=== PATIENT | male | born 1965 | race Caucasian/White ===

== ENCOUNTER 2024-05-26 10:25 | Emergency (ER) | payer BC, SELFPAY ==
[2024-05-26 10:36] VITALS: BP 141/86
--- NOTE | 2024-05-26 11:19 | ED.GENMED ---
History of Present Illness
General
Chief Complaint: Visual Problem
Source: patient
Exam Limitations: none
Time Seen by Provider: 05/26/24 10:42
History of Present Illness
History of Present Illness:
Patient with high flashing left eye 2 weeks ago. Seen by his retina specialist and primary nurse clinical. No serious issue found. Has had bilateral multiple retinal detachments. Has had scleral buckling done. No eye pain no other neurologic
symptoms. Today noticed some decreased left lateral vision with some flashing. Tried to call his specialist to no avail
Past History
Past History
ED Past Medical History: CAD, GERD (eosinphelia), HTN, Hypercholesterolemia and SC
ED Past Surgical History: Cardiac (cath w/ stent), Orthopedic and Other (Eye... Scleral buckling)
Social History
Tobacco: Non-smoker
Alcohol: Occasional
Drug: None
Personal:
Living: with family
Review of Systems
Review of Systems
All Other Systems: Not applicable
Neurological: Reports no symptoms; Denies dizzy, headache, weakness or numbness
Phy Exam
Physical Exam
Physical Exam:
GENERAL: Alert and oriented in no apparent distress
EYE: Right pupil mildly irregular. Left pupil smaller than right. This apparently is known. This sharp. Eye confrontation with some decreased left lateral vision left eye only
NECK: Supple
CARDIAC: Regular rate and rhythm without any obvious murmurs.
LUNGS: Clear breath sounds,normal
NEUROLOGICAL: Alert and oriented , gait normal. Speech normal. Cranial nerves II through XII intact.
SKIN: Warm and dry
PSYCH: Normal and appropriate interaction.
Course
Vital Signs
Initial and Last Documented VS:
Initial Vital Signs
Temp Pulse Resp BP Pulse Ox
98.1 F 69 18 141/86 99
05/26/24 10:36 05/26/24 10:36 05/26/24 10:36 05/26/24 10:36 05/26/24 10:36
Last Documented Vital Signs
Temp Pulse Resp BP Pulse Ox
98.1 F 69 18 141/86 99
05/26/24 10:36 05/26/24 10:36 05/26/24 10:36 05/26/24 10:36 05/26/24 10:36
MDM/Problems Addressed
Differential Diagnosis Includes:
Patient's history and symptom complex most consistent with a left eye issue not a central neurologic issue. This is not a hemianopsia as no other neurologic symptoms. Is a history of multiple detached retina's and this would be consistent. I
tried to call our local nurse clinical who he sees and also tried to contact his specialist without success. Feel he needs to go to [facility]. [facility] was contacted and is happy to have him come down evaluate. He is clinically stable to drive.
*Critical Care Note
Total Time (30-74mins, 75-104mins- exclusive of procedures): Not Applicable
Update Note
Update Note:
1120... No ability locally to be seen. Discussed with patient's primary nurse clinical. No availability or answer from his retinal specialist. Discussed with . They are comfortable having him come down by private vehicle to evaluate.
Clinically I am convinced this is a left eye issue and not a central neurologic issue
ED Attending Note
-
Portions of this chart may have been created with voice recognition software.� Occasional wrong word or��sound alike� substitutions may have occurred due to the inherent limitations of voice recognition software.
Discharge Plan
Departure
Patient Disposition: Home (Routine Discharge)
Date of Disposition: 05/26/24
Time of Disposition: 11:19
Patient with high blood pressure during this ER visit?: Yes
Discharge Problem:
Visual changes, History of retinal detachment
Instructions: BLOOD PRESSURE
Prescriptions:
No Action
No Current Medications
0
Activity Restrictions/Additional Instructions:
Go directly to [facility] emergency department to be seen by their nurse clinical
Interventions
Interventions:
*Risk Screen - Suicide Last Done: 05/26/24 10:36
*General Assessment Last Done: 05/26/24 10:36
*Neglect/Abuse Screening Last Done: 05/26/24 10:36
*ED COVID-19 Vaccine History Last Done: 05/26/24 11:02
*Nursing Disposition Last Done: 05/26/24 11:20
ED-EENT Assessment Last Done: 05/26/24 11:02
ED- Neurological Assessment Last Done: 05/26/24 11:02
Discharge Date and Time
Discharge Date/Time: 05/26/24 11:20
Print Language: THAI
== END 2024-05-26 11:20 | disposition home or self-care (01) ==
LOC: EMR 10:25
PROVIDERS: EMERGENCY PHYSICIAN Emergency Medicine; FAMILY PHYSICIAN Family Medicine
DX: H53.9 Unspecified visual disturbance (principal); I10 Essential (primary) hypertension; Z86.69 Personal history of other diseases of the nervous system and sense organs
CPT/HCPCS: 99282

== ENCOUNTER 2024-05-28 09:38 | Emergency (ER) | payer BC, SELFPAY ==
[2024-05-28] VITALS (8 sets, daily range): BP systolic 121–149; BP diastolic 80–100; BMI 29.1
--- NOTE | 2024-05-28 10:45 | EDRN ---
Patient ambulated with steady gait from Triage to room 10. Patient stated that he's been having flashing floaters in his left eye for about 1-2 weeks and has had intermittent episodes of feeling confused over the past 2 days. Patient stated that he
developed a headache yesterday. Patient is AAOx4. Denies dizziness,weakness,numbness/tingling and speech difficulty. Smile is equal. WELLS x4 equally. Patient stated that his right pupil is normally irregularly shaped from prior eye surgeries.
[2024-05-28 11:05] LABS: % Basophils 0.8 % (0-2); % Eosinophils 7.2 % (0-6); % Immature Granulocytes 0.3 % (0-0.5); % Lymphocytes 26.5 % (20.5-51.1); % Monocytes 3.3 % (1.7-9.3); % Neutrophils 61.9 % (42.2-75.2); Absolute Eosinophils 0.3 10^3/uL (0-0.7); Absolute Monocytes 0.1 10^3/uL (0.1-0.6); Absolute Neutrophils 2.4 10^3/uL (1.4-6.5); Hematocrit 42.9 % (39.0-52.0); Hemoglobin 14.4 g/dL (13.0-18.0); Mean Corp Hgb Conc. 33.6 g/dL (33.0-37.0); Mean Corpuscular Hgb 31.2 pg (27.0-31.0); Mean Corpuscular Volume 93.1 fL (80.0-94.0); Mean Platelet Volume 10.7 fL (7.4-10.4); Nucleated Red Blood Cells % 0 % (-); Platelet Count 456 10^3/uL (130-400); Red Blood Cell Count 4.61 10^6/uL (4.70-6.10); Red Cell Dist. Width 15.6 % (11.5-14.5); White Blood Cell Count 3.9 10^3/uL (4.8-10.8)
--- NOTE | 2024-05-28 11:10 | ED.GENMED ---
History of Present Illness
<CRISSY Mckeon - Last Filed: 05/28/24 15:20>
General
Chief Complaint: Visual Problem
Source: patient
Exam Limitations: none
Time Seen by Provider: 05/28/24 10:19
Nursing documentation reviewed up to this point in time: agreed with
History of Present Illness
History of Present Illness:
Patient is a 58-year-old male past medical history of ME, on (ASA) multiple detached retinas and cataract surgery presents to the ER for evaluation. Patient initially reports that 2 weeks ago he started to have some flashing out of his left eye
however he has seen his retina specialist and everything was fine. On Tuesday patient started with decreased vision of the left eye. He was seen here and sent to [facility] at that time which was negative for retina exam. Yesterday he had
headaches and he has had intermittent headaches since. He has had persistent deficit out of his left sided peripheral vision. Also yesterday and today he has had some episodes of confusion. He does complain of a headache. He denies any
difficulty with speech. Denies any upper lower extremity numbness tingling weakness.
Today patient was seen at [facility] [place] and was sent to the ER for stroke workup.
He did not take his ASA yet today today.
Past History
<CRISSY Mckeon - Last Filed: 05/28/24 15:20>
Past History
ED Past Medical History: CAD, GERD (eosinphelia), HTN, Hypercholesterolemia and ME
ED Past Surgical History: Cardiac (cath w/ stent), Orthopedic and Other (Eye... Scleral buckling)
Social History
Tobacco: Non-smoker
Alcohol: Occasional
Drug: None
Personal:
Living: with family
Review of Systems
<CRISSY Mckeon - Last Filed: 05/28/24 15:20>
Review of Systems
Allergies reviewed?: Yes
All Other Systems: ROS reviewed and negative except as documented in HPI and ROS
Constitutional: Reports no symptoms
EENT: Reports other (Decreased vision from left eye intermittent flashes from left eye)
Respiratory: Reports no symptoms
Cardiac: Reports no symptoms
ABD/GI: Reports no symptoms; Denies abdominal pain, nausea or vomiting
: Reports no symptoms
Musculoskeletal: Reports no symptoms
Skin: Reports no symptoms; Denies rash
Neurological: Reports headache; Denies dizzy, weakness or numbness
Psychiatric: Reports no symptoms
Phy Exam
<CRISSY Mckeon - Last Filed: 05/28/24 15:20>
General Physical Exam
General Presentation: no apparent distress
General age: appears stated age
General Skin: warm and dry
General Habitus: normal
General Mental: alert
General Hydration: appears well hydrated
Eye Exam
Eye Exam: PERRL, EOMI and other (decreased left sided peripheral vision)
Eye Exam General: PERRL: bilateral and EOM intact: bilateral
Pupil Exam: Bilateral: round and reactive
Cardiovascular Exam
Cardiovascular Exam: regular rate/rhythm, no murmur and normal peripheral pulses
Pulmonary Exam
Pulmonary Exam: lungs clear and no respiratory distress
Neurological Exam
Neurological Exam: alert, oriented x3, no motor deficits, no sensory deficits, speech normal and other (pt with left sided field cut deficit from both left eye and right eye )
NIH Stroke Score
Level of Consciousness: 0 - Alert
LOC questions: 0-Answers both correctly
LOC Commands: 0-Performs both correctly
Best Gaze: 0-Normal
Visual Aragon: 1=Partial hemianopia
Facial palsy: 0=Normal, symmetrical
Motor - Right Arm: 0=No drift 10 seconds
Motor - Left Arm: 0=No drift 10 seconds
Motor - Right Le-No drift 5 seconds
Motor - Left Le-No drift 5 seconds
Limb Ataxia: 0-Absent
Sensation: 0-Normal
Best Language: 0-No aphasia
Dysarthria: 0-Normal
Extinction and Inattention: 0-No abnormality
Total Score:: 1
Soren Coma Scale
Eye Opening: Spontaneous
Verbal Response: Oriented
Motor Response: Obeys Commands
GCS Total Score: 15
Cerebellar
Cerebellar Function: normal finger to nose
Musculoskeletal Exam
Musculoskeletal Exam: full ROM
Skin Exam
Skin Exam: normal color and warm/dry
Psychiatric Exam
Psychiatric Exam: normal mood/affect
<Jorge Morgan DO - Last Filed: 05/28/24 14:56>
NIH Stroke Score
Total Score:: 1
[place] Coma Scale
GCS Total Score: 15
Course
<TISH MckeonNP - Last Filed: 05/28/24 15:20>
Orders/Labs/Results
Orders:
Orders
05/28/24 10:52
CMP [Comprehensive Metabolic Panel] Urgent
CRP [C-Reactive Protein] Urgent
Complete Blood Count/With Diff Urgent
Erythrocyte Sed Rate Urgent
05/28/24 11:34
CT Head W/o Iv Contrast Urgent
Comment:
Reason For Exam: headache , left latearl peripheral vision loss
05/28/24 11:35
CT Head & Neck Angio W/wo IV Urgent
Comment:
Reason For Exam: decrease peripheral vision from left eye
05/28/24 13:44
Vital Signs- Treatment ONCE
Frequency: Once
05/28/24 13:58
Levetiracetam Injectable [Keppra] 1,000 mg IV NOW STA
Abnormal Lab Results
05/28/24
10:52
WBC 3.9 L 10^3/uL
(4.8-10.8)
RBC 4.61 L 10^6/uL
(4.70-6.10)
MCH 31.2 H pg
(27.0-31.0)
RDW 15.6 H %
(11.5-14.5)
Plt Count 456 H 10^3/uL
(130-400)
MPV 10.7 H fL
(7.4-10.4)
Absolute Lymphs (auto) 1.0 L 10^3/uL
(1.2-3.4)
Eosinophils % 7.2 H %
(0-6)
Potassium 5.5 H mmol/L
(3.5-5.1)
Glucose 108 H mg/dl
(70-99)
05/28/24 10:52
05/28/24 10:52
Vital Signs
Initial and Last Documented VS:
Initial Vital Signs
Temp Pulse Resp BP Pulse Ox
98.3 F 79 16 149/100 98
05/28/24 09:41 05/28/24 09:41 05/28/24 09:41 05/28/24 09:41 05/28/24 09:41
Last Documented Vital Signs
Temp Pulse Resp BP Pulse Ox
98.3 F 74 16 140/88 99
05/28/24 09:41 05/28/24 15:13 05/28/24 15:13 05/28/24 15:13 05/28/24 15:13
<Jorge Morgan, DO - Last Filed: 05/28/24 14:56>
Orders/Labs/Results
Orders:
Orders
05/28/24 10:52
CMP [Comprehensive Metabolic Panel] Urgent
CRP [C-Reactive Protein] Urgent
Complete Blood Count/With Diff Urgent
Erythrocyte Sed Rate Urgent
05/28/24 11:34
CT Head W/o Iv Contrast Urgent
Comment:
Reason For Exam: headache , left latearl peripheral vision loss
05/28/24 11:35
CT Head & Neck Angio W/wo IV Urgent
Comment:
Reason For Exam: decrease peripheral vision from left eye
05/28/24 13:44
Vital Signs- Treatment ONCE
Frequency: Once
05/28/24 13:58
Levetiracetam Injectable [Keppra] 1,000 mg IV NOW STA
Abnormal Lab Results
05/28/24
10:52
WBC 3.9 L 10^3/uL
(4.8-10.8)
RBC 4.61 L 10^6/uL
(4.70-6.10)
MCH 31.2 H pg
(27.0-31.0)
RDW 15.6 H %
(11.5-14.5)
Plt Count 456 H 10^3/uL
(130-400)
MPV 10.7 H fL
(7.4-10.4)
Absolute Lymphs (auto) 1.0 L 10^3/uL
(1.2-3.4)
Eosinophils % 7.2 H %
(0-6)
Potassium 5.5 H mmol/L
(3.5-5.1)
Glucose 108 H mg/dl
(70-99)
05/28/24 10:52
05/28/24 10:52
Vital Signs
Initial and Last Documented VS:
Initial Vital Signs
Temp Pulse Resp BP Pulse Ox
98.3 F 79 16 149/100 98
05/28/24 09:41 05/28/24 09:41 05/28/24 09:41 05/28/24 09:41 05/28/24 09:41
Last Documented Vital Signs
Temp Pulse Resp BP Pulse Ox
98.3 F 74 16 140/88 99
05/28/24 09:41 05/28/24 15:13 05/28/24 15:13 05/28/24 15:13 05/28/24 15:13
<CRISSY Mckeon - Last Filed: 05/28/24 15:20>
MDM/Problems Addressed
MDM/Problems Addressed:
As documented patient is a 58-year-old male with history of retinal detachments presents to the ER for evaluation. On Tuesday he started with decreased peripheral vision left-sided. He was seen here in the ER and sent to [facility] . He however
continues with left-sided decreased peripheral vision and since yesterday has noted headaches and feels intermittently confused at times. He denies any upper extremity weakness. He has a mild headache now. 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
of left side. d/ c with ED attending and neuro.
CT/CTA head neck angio was done: Concern for AVM involving the right posterior septum parietal lobes there is some increased density in this region on precontrast CT and there may be some associated petechial hemorrhage no evidence persistent mass
effect. Discussed with neurology recommends discussing with neurosurgery. I did discuss with Dr. Page of neurosurgery he does recommend transfer to cerebrovascular neurosurgery either [place] or [place] he will need an angiogram potentially as
recommended we will keep his blood pressure systolic less than 140.
Case reviewed with neurosurgery at [place], Dr. Good Lyons who does accept patient in transfer under attending Dr. Steinberg.
As recommended 1 g of Keppra ordered
Patient ann awake alert and oriented x 3 consent for transfer obtained by patient
<CRISSY Mckeon - Last Filed: 05/28/24 15:20>
*Radiology
Radiology exam reviewed: radiology read reviewed
*Pulse Oximetry
Patient hypoxic: no
*Critical Care Note
Total Time (30-74mins, 75-104mins- exclusive of procedures): Not Applicable
Data Reviewed
Review of Other/Old Records Reveals: Other (previous ED visit )
<CRISSY Mckeon - Last Filed: 05/28/24 15:20>
Patient Management
Discussion with other providers: [employer] (neuro DR Montgomery and neuro surg DR Page )
ED Attending Note
<CRISSY Mckeon - Last Filed: 05/28/24 15:20>
-
Portions of this chart may have been created with voice recognition software.� Occasional wrong word or��sound alike� substitutions may have occurred due to the inherent limitations of voice recognition software.
<Jorge Morgan DO - Last Filed: 05/28/24 14:56>
ED Attending Note
Patient seen and examined by attending physician: Yes
I performed the substantive portion of visit, reviewed & personally made and approve the management plan that is documented in note by myself or CARLOS.: Yes
I performed a history and physical exam of patient and discussed management with resident, I reviewed resident's note and agree with documented findings and plan of care.: Yes
ED Attending Note:
I evaluated the patient at bedside. The patient does have a home ominous hemianopsia affecting the left visual field on my physical examination. CT and CT imaging abnormal. Patient to be transferred to [place].
Discharge Plan
Departure
Patient Disposition: Acute Care Hospital
Date of Disposition: 05/28/24
Time of Disposition: 13:52
Admit to doctor: So but I do not
Patient with high blood pressure during this ER visit?: Yes
Condition: Fair
Covid-19: Not Applicable
Discharge Problem:
AV malformation
Prescriptions:
No Action
atorvastatin 80 mg tablet
80 mg PO DAILY
lisinopril 20 mg tablet
20 mg PO DAILY
aspirin 81 mg tablet,delayed release (DR/EC)
81 mg PO DAILY
omeprazole 20 mg capsule,delayed release(DR/EC)
20 mg PO BID
metoprolol succinate 25 mg tablet extended release 24 hr
25 mg PO HS
coenzyme Q10 [CoQ-10] 100 mg Capsule
100 mg PO DAILY
Referrals:
Brendon Chung DO [Family Provider] -
Hospital Transfer
Other hospital: [facility]
I certify that the patient requires transfer: Yes
Discussed case with accepting physician: DR Steinberg
Reason for transfer: higher level of care and specialties available
Interventions
Interventions:
*Risk Screen - Suicide Last Done: 05/28/24 09:43
*General Assessment Last Done: 05/28/24 10:30
*Neglect/Abuse Screening Last Done: 05/28/24 09:43
ED- Fall Risk Assessment Last Done: 05/28/24 10:30
*ED COVID-19 Vaccine History Last Done: 05/28/24 10:30
*Nursing Disposition Last Done: 05/28/24 15:13
ED- Neurological Assessment Last Done: 05/28/24 10:30
ED-EENT Assessment Last Done: 05/28/24 10:30
ED Swallowing Screen Last Done: 05/28/24 10:48
Discharge Date and Time
Discharge Date/Time: 05/28/24 15:10
Print Language: LATVIAN
[2024-05-28 11:19] LABS: ALT (SGPT) 39 U/L (0-50); AST (SGOT) 33 U/L (17-59); Albumin 4.5 g/dl (3.5-5.0); Alkaline Phosphatase 53 U/L (38-126); Blood Urea Nitrogen 19 mg/dl (9-20); Calcium 9.6 mg/dl (8.4-10.2); Carbon Dioxide 30 mmol/L (22-30); Chloride 99 mmol/L (98-107); Estimated Creatinine Clearance 93 ml/min; Glucose 108 mg/dl (70-99); Potassium 5.5 mmol/L (3.5-5.1); Sodium 138 mmol/L (135-145); eGFR > 60.00
[2024-05-28 11:28] LABS: C-Reactive Protein < 5.00 mg/L (0.0-10.00)
--- NOTE | 2024-05-28 11:36 | PHANOTE ---
Patient stated that his medication for eosinophilic esophagitis was recently changed but is unsure of the name of the drug. Omeprazole was listed as an active medication in the PCP office medication list and is also a recent prescription fill.
Patient is still unable to confirm if this is the drug that he is currently taking.
[2024-05-28 11:57] LABS: Erythrocyte Sed Rate 8 mm/hour (0-20)
[2024-05-28] MEDS: KEPPRA 1000 MG IV (14:07)
--- NOTE | 2024-05-28 14:20 | EDRN ---
Report given to GREGORIO Campbell at [facility]. Waiting for transportation arrangements to be made.
== END 2024-05-28 15:10 | disposition short-term general hospital (02) ==
LOC: EMR 09:38
PROVIDERS: Nurse Practitioner; EMERGENCY PHYSICIAN Emergency Medicine; FAMILY PHYSICIAN Family Medicine
DX: Q28.2 Arteriovenous malformation of cerebral vessels (principal); I10 Essential (primary) hypertension
CPT/HCPCS: 99285; 96374; 70450; 70496; 70498; 80053; 85025; 85652; 86140; Q9967

== ENCOUNTER → 2024-08-10 12:22 | Outpatient (REF) | payer BC, SELFPAY | LOC: RAD 12:22 | PROVIDERS: ATTENDING PHYSICIAN Family Medicine | DX: R06.02 Shortness of breath (principal); R00.0 Tachycardia, unspecified | CPT/HCPCS: 71275; Q9967 ==

== ENCOUNTER 2024-08-19 15:49 | Emergency (ER) | payer BC, SELFPAY ==
[2024-08-19] VITALS (13 sets, daily range): BP systolic 128–177; BP diastolic 75–106; BMI 28.4
[2024-08-19 16:10] LABS: % Basophils 0.8 % (0-2); % Eosinophils 3.9 % (0-6); % Lymphocytes 28.9 % (20.5-51.1); % Neutrophils 63.4 % (42.2-75.2); Absolute Basophils 0.1 10^3/uL (0-0.2); Absolute Eosinophils 0.2 10^3/uL (0-0.7); Absolute Immature Granulocytes 0.1 10^3/uL (0-0.05); Absolute Lymphocytes 1.8 10^3/uL (1.2-3.4); Absolute Monocytes 0.1 10^3/uL (0.1-0.6); Absolute Neutrophils 3.9 10^3/uL (1.4-6.5); Hematocrit 38.5 % (39.0-52.0); Hemoglobin 12.8 g/dL (13.0-18.0); Mean Corp Hgb Conc. 33.2 g/dL (33.0-37.0); Mean Corpuscular Hgb 30.3 pg (27.0-31.0); Mean Corpuscular Volume 91.2 fL (80.0-94.0); Mean Platelet Volume 9.2 fL (7.4-10.4); Nucleated Red Blood Cells % 0.3 % (-); Platelet Count 757 10^3/uL (130-400); Red Blood Cell Count 4.22 10^6/uL (4.70-6.10); Red Cell Dist. Width 16.9 % (11.5-14.5); White Blood Cell Count 6.2 10^3/uL (4.8-10.8)
--- NOTE | 2024-08-19 16:10 | ED.GENMED ---
History of Present Illness
General
Chief Complaint: Seizure
Source: patient and ambulance crew
Exam Limitations: clinical condition
Time Seen by Provider: 08/19/24 15:58
History of Present Illness
History of Present Illness:
This is a 59-year-old male who presents after seizure. Reportedly the patient said that his did not feel well and he was worried he was could have a seizure. He then subsequently had a seizure event. Reportedly it lasted about 5 minutes or
less. In addition, EMS reports that the patient received CPR. The patient was up states he has no complaints but he is notably slow to respond. He denies headache. EMS reports no seizure activity on their care of the patient. EMS does report
that the patient was recently started on a new chemotherapy for brain tumor.
Past History
Past History
ED Past Medical History: CAD, GERD (eosinphelia), HTN, Hypercholesterolemia, HI and Other (Brain tumor)
ED Past Surgical History: Cardiac (cath w/ stent), Orthopedic and Other (Eye... Scleral buckling)
Social History
Tobacco: Non-smoker
Alcohol: Occasional
Drug: None
Personal:
Living: with family
Phy Exam
Physical Exam
Physical Exam:
CONSTITUTIONAL Patient alert and oriented to person. Somewhat some but opens eyes to voice. Vital signs reviewed.
HEAD atraumatic, normocephalic.
EYES eyelids normal to inspection, Extraocular muscles intact, Conjunctiva normal, Sclera normal.
NECK normal range of motion, Trachea midline, no jugular venous distention.
RESPIRATORY CHEST No respiratory distress noted, Chest expansion equal,
ABDOMEN No distention.
BACK normal inspection, no obvious deformities
UPPER EXTREMITY range of motion normal, Motor strength normal, no cyanosis, no edema.
LOWER EXTREMITY range of motion normal, Motor strength normal, no cyanosis, no edema.
NEURO cranial nerves grossly intact. Patient able to move all his extremities on command. Holds it against gravity with ease
SKIN skin warm, dry, and normal in color.
Course
Orders/Labs/Results
Orders:
Orders
08/19/24 15:50
Etomidate [Amidate] 40 mg .ROUTE .STK-MED ONE
Succinylcholine Chloride [Succinylcholine] 200 mg .ROUTE .STK-MED ONE
08/19/24 15:59
CT Head W/o Iv Contrast Urgent
Comment:
Reason For Exam: seizure, h/o brain ca
08/19/24 16:02
Complete Blood Count/With Diff Urgent
Comprehensive Metabolic Panel Urgent
08/19/24 16:07
CR Chest Portable - 1 View Urgent
Comment:
Reason For Exam: seizure, hypoxia
Reason Study Needs to be Portable: Unable to Transport
08/19/24 16:55
Lorazepam [Ativan] 2 mg .ROUTE .STK-MED ONE
08/19/24 16:56
Lorazepam [Ativan] 1 mg IV NOW STA
08/19/24 17:02
0.9% Sodium Chloride 500 ml [Nss] 500 ml IV BOLUS
Levetiracetam Injectable [Keppra] 2,000 mg IV NOW STA
08/19/24 17:42
Vital Signs- Treatment ONCE
Frequency: Once
08/19/24 18:01
Dexamethasone Sod Phosphate [Decadron] 10 mg IV NOW STA
08/19/24 18:46
Propofol 1,000,000 Mcg/100 ml [Diprivan] 1,000,000 mcg in 100 ml .ROUTE .STK-MED
08/19/24 18:49
Midazolam HCl [Versed] 5 mg .ROUTE .STK-MED ONE
08/19/24 18:54
Portable Chest Xray [CR Chest Portable - 1 View] Urgent
Comment:
Reason For Exam: post intubation
Reason Study Needs to be Portable: Patient Unstable
08/19/24 18:59
CT Head W/o Iv Contrast Urgent
Comment:
Reason For Exam: seizure, change in ms
08/19/24 19:16
Midazolam HCl [Versed] 5 mg .ROUTE .STK-MED ONE
Abnormal Lab Results
08/19/24 08/19/24
16:02 18:48
RBC 4.22 L 10^6/uL
(4.70-6.10)
Hgb 12.8 L g/dL
(13.0-18.0)
Hct 38.5 L %
(39.0-52.0)
RDW 16.9 H %
(11.5-14.5)
Plt Count 757 H 10^3/uL
(130-400)
Abs Immat Gran (auto) 0.1 H 10^3/uL
(0-0.05)
Immature Gran % 1.0 H %
(0-0.5)
Carbon Dioxide 21 L mmol/L
(22-30)
Glucose 174 H mg/dl
(70-99)
POC Glucose 154 H mg/dl
(70-99)
08/19/24 16:02
08/19/24 16:02
Vital Signs
Initial and Last Documented VS:
Initial Vital Signs
Temp Pulse Resp BP Pulse Ox
99.2 F 117 17 129/80 96
08/19/24 15:52 08/19/24 15:52 08/19/24 15:52 08/19/24 15:52 08/19/24 15:52
Last Documented Vital Signs
Temp Pulse Resp BP Pulse Ox
99.2 F 106 13 136/81 92
08/19/24 15:52 08/19/24 19:30 08/19/24 19:30 08/19/24 19:30 08/19/24 15:52
Procedures
Intubations
Procedure completed by: Dr. Steward/Davina reed PA-C
Method of Intubation: glidescope
Tube size (cm): 7.5
Placement confirmed by: CXR and capnography
Breath sounds after intubation: equal
Intubation complications: no complications
MDM/Problems Addressed
MDM/Problems Addressed:
Seizure, suspected aspiration, change in mental status
*Radiology
Radiology exam reviewed: preliminary read by ED provider (Right parietal mass is noted small hyperdense rim)
*Pulse Oximetry
Patient hypoxic: no
*Screed Person Interpretation
Rate: tachycardiac
Interpretation: abnormal
Rhythm: sinus
*Critical Care Note
Total Time (30-74mins, 75-104mins- exclusive of procedures): 80 minutes
Data Reviewed
Review of Other/Old Records Reveals: Radiology Studies (Prior CT report reviewed from June 2024)
Source: patient and family
Prescriptions/Medications Considered But Not Given:
Consider antibiotics but afebrile, white count normal
Patient Management
Discussion with other providers: Fishing Instructor (Case discussed with [facility] neurology, neuro ICU and neurosurgery)
Update Note
Update Note:
Patient reassessed. Has twitching of the right eye and occasional twitching of the left foot. Son is now bedside and states that the patient for started having some twitching of the left arm and then seem to generalized. states that for some
time before this was not quite himself and was sort of staring off. IV Ativan given. IV Keppra ordered. Will connect him contact [facility] neurosurgery
1908 patient reassessed multiple times. Found the times to have twitching sometimes of the scalp. Progressively became less alert. On my final reassessment before intubation, the patient had just about no gag reflex. Patient also did not respond
like he did earlier. Did not respond to painful stimuli. Concern for airway protection. He was in fact a little hypoxic at 89%. I do suspect he aspirated at some level. Neuro ICU at [facility] was updated. The patient will get transferred to
[facility]. Flight team coming. Repeat head CT now. Tolerating intubation well and heart rate actually has come down. On propofol. Also given Versed and etomidate. Succinylcholine to facilitate intubation.
ED Attending Note
-
Portions of this chart may have been created with voice recognition software.� Occasional wrong word or��sound alike� substitutions may have occurred due to the inherent limitations of voice recognition software.
Discharge Plan
Departure
Patient Disposition: Acute Care Hospital
Date of Disposition: 08/19/24
Time of Disposition: 17:05
Discharge Problem:
Seizure
Prescriptions:
No Action
atorvastatin 80 mg tablet
80 mg PO DAILY
lisinopril 20 mg tablet
20 mg PO DAILY
aspirin 81 mg tablet,delayed release (DR/EC)
81 mg PO DAILY
omeprazole 20 mg capsule,delayed release(DR/EC)
20 mg PO BID
metoprolol succinate 25 mg tablet extended release 24 hr
25 mg PO HS
coenzyme Q10 [CoQ-10] 100 mg Capsule
100 mg PO DAILY
ondansetron HCl 8 mg tablet
8 mg PO Q8HPRN PRN (Reason: nausea)
acetaminophen 500 mg Tablet
1,000 mg PO DAILYPRN PRN (Reason: mild pain)
calcium polycarbophil [FiberCon] 625 mg Tablet
625 mg PO DAILY
temozolomide 20 mg Capsule
20 mg PO QPM
Rx Instructions:
started 08/17/24 for 42 days, taken with 140mg
temozolomide 140 mg capsule
140 mg PO QPM
Rx Instructions:
started 08/17/24 for 42 days, taken with 20mg
Referrals:
Brendon Chung DO [Family Provider] -
Hospital Transfer
Other hospital: [facility]
I certify that the patient requires transfer: Yes
Discussed case with accepting physician: Neuro ICU
Reason for transfer: higher level of care
Interventions
Interventions:
*Risk Screen - Suicide Last Done: 08/19/24 15:52
*General Assessment Last Done: 08/19/24 15:52
*Neglect/Abuse Screening Last Done: 08/19/24 15:52
ED- Fall Risk Assessment Last Done: 08/19/24 15:52
*Nursing Disposition Last Done: 08/19/24 19:59
ED- Cardiac Assessment Last Done: 08/19/24 15:52
ED- Neurological Assessment Last Done: 08/19/24 15:52
ED- Pulmonary Assessment Last Done: 08/19/24 15:52
Discharge Date and Time
Discharge Date/Time: 08/19/24 20:01
Print Language: FILIPINO
[2024-08-19 16:22] LABS: ALT (SGPT) 34 U/L (0-50); AST (SGOT) 36 U/L (17-59); Alkaline Phosphatase 76 U/L (38-126); Blood Urea Nitrogen 16 mg/dl (9-20); Calcium 8.9 mg/dl (8.4-10.2); Carbon Dioxide 21 mmol/L (22-30); Chloride 101 mmol/L (98-107); Estimated Creatinine Clearance 92 ml/min; Glucose 174 mg/dl (70-99); Potassium 5.1 mmol/L (3.5-5.1); Sodium 137 mmol/L (135-145); Total Bilirubin 0.4 mg/dl (0.2-1.3); Total Protein 6.5 g/dl (6.3-8.2); eGFR > 60.00
[2024-08-19] MEDS: ATIVAN 1 MG IV (16:57)
[2024-08-19] MEDS: KEPPRA 2000 MG IV (17:24)
[2024-08-19] MEDS: NSS 500 IV (17:25)
[2024-08-19] MEDS: DECADRON 10 MG IV (18:22)
[2024-08-19 18:49] LABS: Glucose - Point of Care 154 mg/dl (70-99)
== END 2024-08-19 20:01 | disposition short-term general hospital (02) ==
LOC: EMR 15:49
PROVIDERS: EMERGENCY PHYSICIAN Emergency Medicine; FAMILY PHYSICIAN Family Medicine
DX: R56.9 Unspecified convulsions (principal); D49.6 Neoplasm of unspecified behavior of brain; I25.10 Atherosclerotic heart disease of native coronary artery without angina pectoris; E78.00 Pure hypercholesterolemia, unspecified; I10 Essential (primary) hypertension; K21.9 Gastro-esophageal reflux disease without esophagitis; Z95.5 Presence of coronary angioplasty implant and graft; Z79.60 Long term (current) use of unspecified immunomodulators and immunosuppressants
CPT/HCPCS: 31500; 96374; 96375; 99291; 99292; 70450; 71045; 80053; 82962; 85025; 94002

== ENCOUNTER 2024-09-11 14:16 | Inpatient (IN) | payer BC, SELFPAY ==
[2024-09-11] VITALS (42 sets, daily range): BP systolic 103–167; BP diastolic 62–104; BMI 29.1; BMI 28.6
[2024-09-11] MEDS: ATIVAN 1 MG IV (10:20)
--- NOTE | 2024-09-11 10:30 | ED.GENMED ---
History of Present Illness
General
Chief Complaint: Seizure
Source: patient, records and ambulance crew
Exam Limitations: clinical condition
Time Seen by Provider: 09/11/24 10:13
Nursing documentation reviewed up to this point in time: agreed with
History of Present Illness
History of Present Illness:
59-year-old male with a past medical history of glioblastoma presents to the ER for evaluation of seizure. Per EMS he had witnessed seizure; after their arrival he had 3 witnessed focal seizures within a 10-minute period. EMS says that he had
twitching of his left face and jaw as well as his eyes. He was given 2 mg of IM Ativan from EMS with improvement. He has been following at [facility] for neurosurgery and is on oral chemotherapy. He was seen in this emergency room in late July
for seizures related to brain mass and edema. Review of medication list shows he is on Vimpat. He is on dexamethasone. Per EMS report he apparently had a 'bad reaction' to Keppra in the past.
Past History
Past History
ED Past Medical History: CAD, GERD (eosinphelia), HTN, Hypercholesterolemia, PR and Other (Brain tumor)
ED Past Surgical History: Cardiac (cath w/ stent), Orthopedic and Other (Eye... Scleral buckling)
Social History
Tobacco: Non-smoker
Alcohol: Occasional
Drug: None
Personal:
Living: with family
Review of Systems
Review of Systems
Unable to obtain full review of systems at this time due to: due to acuity
All Other Systems: Not applicable
Phy Exam
Physical Exam
Physical Exam:
General: Lethargic but arousable
Head: Normocephalic, atraumatic
Eyes: Conjunctiva normal, pupils 3 mm and reactive to light bilaterally, extraocular movements are intact without any gaze deviation
Throat: Airway intact, handling secretions
Neck: Trachea midline, supple without meningismus
Lungs: Clear to auscultation bilaterally, no wheezing, rales, rhonchi
Heart: Regular rate and rhythm, no murmurs, gallops, or rubs
Abd: Soft, non distended, nontender
Neuro: Patient has left facial paralysis, left hemiparesis, decree sensation left upper and lower extremity
Extremities: Warm and well-perfused with no edema
Scores
NIH Stroke Score
Level of Consciousness: 1 - Arousable
LOC Questions: 1-Answers one correctly
LOC Commands: 2-Performs neither correctly
Best Horizontal Gaze: 0-Normal
Visual Aragon: 0=Normal, no visual loss
Facial Palsy: 2=Partial paralysis
Motor - Right Arm: 0=No drift 10 seconds
Motor - Left Arm: 4=No movement
Motor - Right Le-No drift 5 seconds
Motor - Left Le-No movement
Limb Ataxia: 0-Absent
Sensation: 2-Severe loss
Best Language: 0-No aphasia
Dysarthria: 1-Mild slurring
Extinction and Inattention: 2-Total onesimo inattention
Total Score:: 19
Thrombolytic Contraindication
Inclusion and Exclusion criteria reviewed: Yes
Reasons for NON-Tx with Thrombolytics ABSOLUTE Exclusions: Intra-axial intracranial neoplasm
Heart Failure Risk
Heart Failure Risk Score: Not Applicable
Heart Score for Chest Pain Patients
STEMI patient?: Not applicable
Withdrawal Assessment of Alcohol
Withdrawal Assessment Completed?: Not applicable
Course
Orders/Labs/Results
Orders:
Orders
09/11/24 10:13
Bedside Glucose- Treatment ONCE
09/11/24 10:14
Electrocardiogram (*1) Urgent
Reason for Study: Vertigo / Dizzy
EKG- Treatment ONCE
09/11/24 10:20
Lorazepam [Ativan] 1 mg IV NOW STA
09/11/24 10:23
CT HEAD STROKE ALERT W/o Cont Urgent
Comment:
Reason For Exam: left hemiparesis
09/11/24 10:24
Lorazepam [Ativan] 2 mg .ROUTE .STK-MED ONE
09/11/24 10:27
CPK [Creatine Phosphokinase] Urgent
Complete Blood Count/With Diff Urgent
Comprehensive Metabolic Panel Urgent
09/11/24 10:30
NEUROLOGY CONSULT Urgent
Consulting Provider: Lindy Blue
Was physician already notified: Yes
09/11/24 10:36
Valproate Sodium [Depacon] 1,000 mg 0.9% Sodium Chloride 50 ml [Nss] 50 ml IV NOW
09/11/24 10:41
EEG, 41-60 minutes Urgent
09/11/24 10:45
CT HEAD/NECK ANG STROKE ALERT Urgent
Comment:
Reason For Exam: left hemiparesis
09/11/24 10:49
Propofol 1,000,000 Mcg/100 ml [Diprivan] 1,000,000 mcg in 100 ml .ROUTE .STK-MED
Propofol [Diprivan] 20 ml .ROUTE .STK-MED
09/11/24 10:56
Valproate Sodium [Depacon] 1,000 mg 0.9% Sodium Chloride 50 ml [Nss] 50 ml IV NOW
09/11/24 11:05
CR Chest Portable - 1 View Urgent
Comment:
Reason For Exam: hypoxia
Reason Study Needs to be Portable: Unable to Transport
09/11/24 11:36
Lacosamide [Vimpat] 100 mg IV NOW STA
Abnormal Lab Results
09/11/24 09/11/24
10:26 10:27
WBC 12.9 H 10^3/uL
(4.8-10.8)
RBC 4.40 L 10^6/uL
(4.70-6.10)
MCV 95.2 H fL
(80.0-94.0)
MCH 31.4 H pg
(27.0-31.0)
MCHC 32.9 L g/dL
(33.0-37.0)
RDW 19.9 H %
(11.5-14.5)
Plt Count 441 H 10^3/uL
(130-400)
Abs Immat Gran (auto) 0.6 H 10^3/uL
(0-0.05)
Absolute Neuts (auto) 10.9 H 10^3/uL
(1.4-6.5)
Absolute Lymphs (auto) 0.9 L 10^3/uL
(1.2-3.4)
Immature Gran % 4.5 H %
(0-0.5)
Neutrophils % 85.0 H %
(42.2-75.2)
Lymphocytes % 6.8 L %
(20.5-51.1)
Sodium 130 L mmol/L
(135-145)
BUN 22 H mg/dl
(9-20)
Glucose 109 H mg/dl
(70-99)
Calcium 8.1 L mg/dl
(8.4-10.2)
ALT 54 H U/L
(0-50)
Creatine Kinase 45 L U/L
(55-170)
Total Protein 5.6 L g/dl
(6.3-8.2)
Albumin 3.4 L g/dl
(3.5-5.0)
POC Glucose 106 H mg/dl
(70-99)
09/11/24 10:27
09/11/24 10:27
Vital Signs
Initial and Last Documented VS:
Initial Vital Signs
BP
157/81
09/11/24 10:21
Last Documented Vital Signs
Temp Pulse Resp BP Pulse Ox
36.9 C 100 15 138/85 98
09/11/24 10:26 09/11/24 11:40 09/11/24 11:40 09/11/24 11:40 09/11/24 11:40
MDM/Problems Addressed
Differential Diagnosis Includes:
Seizure with Guy's paralysis, brain bleed, worsening mass effect, ischemic stroke
MDM/Problems Addressed:
59-year-old male with history as documented presents to the emergency room for evaluation after witnessed seizures�was having twitching of the face and head. EMS reports 3 seizures within 10-minute.. Received 2 mg of IM Ativan from EMS. He
arrives to us with flaccid paralysis on the left and dysarthria. Vitals and exam as above. Accu-Chek normal. Stroke alert called�discussed with neurology at bedside will take for a emergent CT head. Would not be a tenecteplase candidate given
known brain mass. Concern for possible bleed versus seizure with Guy's paralysis. Will load with Depakote per neurology�apparently patient had a bad reaction to Keppra in the past. Will monitor very closely reassess after the above.
CT head called back by radiology: Edema improved from prior study but question some component of increased hemorrhage around mass. Case discussed with neurology�they are requesting a CTA head and neck to rule out a large vessel occlusion based on
his clinical presentation. Could also be seizure with Guy's paralysis or related to increased hemorrhage although based on location of mass they feel that hemorrhage less likely to cause hemiparesis.
I spoke to the patient's brother who is here in the emergency room; brother is working on contacting his . He is undergoing treatment at [facility] for neurosurgical care. He is on oral chemotherapy and radiation treatment. He is on
dexamethasone and apparently yesterday there was an adjustment to his AED; he is apparently on lacosamide, brother is unsure what he was on previously.
Patient having some additional twitching of the left face shortly after arrival here and he was given 1 mg of IV Keppra in addition to the 2 mg IM he was given prehospital. He is very lethargic after Ativan and his pulse ox is in the 80s on room
air he was placed on supplemental oxygen. I had a long discussion with his brother and he is calling patient's to discuss�I explained that if he has additional seizure activity and requires additional antiepileptics/abortive agents he is
likely to progress into respiratory failure and required intubation. Brother indicates that patient may not wish to be intubated in this circumstance and he is speaking with his family to determine best course of action should intubation be
required. In the meantime we will continue to support with supplemental oxygen and monitor for seizure activity.
Neurology doing a spot EEG at bedside.
Patient does have seizure activity on EEG. He is currently being loaded with Depakote. He has had occasional twitching of the left side of the face usually lasting for about 15 to 20 seconds. He is still very lethargic. Per neurology will treat
with Vimpat 100 mg IV. He is hypoxic suspect combination of postictal period plus benzodiazepines and AEDs. I spoke with his family and explained that he is having continued seizure activity will likely require additional AEDs and benzodiazepines
and that he is already showing signs of respiratory compromise. I explained that intubation is likely to be necessary in his case but apparently there was concern that he would not want to be intubated again. His is on the way to the hospital
and we will discuss further in person. Right now we will continue with supplemental oxygen.
I spoke to the transfer team at [facility] and I did accept him to our to their neuro ICU for transfer. I spoke to our neurologist reviewed EEG from after patient loaded with Depakote and Vimpat�EEG greatly improved.
Patient's is at bedside with family. She does not wish for him to be transferred down to [facility] she wishes for him to be managed here. She called Dr. Carlos his primary neurosurgeon and I spoke to Dr. Carlos on the phone in concert with
his . He did not feel patient requires transfer to tertiary center at this point in time and can be managed for his seizures here. I discussed with neurology from their perspective they feel comfortable managing patient in the ICU here.
Shared decision making with , will admit here for management of seizure activity and suspected Guy's paralysis. Discussed case with hospitalist.
Chronic conditions affecting care:
Glioblastoma
*Radiology
Radiology exam reviewed: radiology read reviewed
*Pulse Oximetry
Patient hypoxic: yes
*EKG
Interpreted by ED Provider?: Yes
Heart Rate: 120
Rate: tachycardiac
Rhythm: sinus and sinus tachycardia
[place]: normal axis
Interval: normal interval
QRS Pattern: wide non-specific
Ischemia: non-specific ST changes
*Critical Care Note
Total Time (30-74mins, 75-104mins- exclusive of procedures): 57
comment:
Critical care statement: A total of 57 minutes of critical care time was provided for this patient. This includes management of unstable vital signs, evaluation of the patient at bedside, frequent reassessment, discussion with
consultants/hospitalist, and review of pertinent medical records. This time was separate from time utilized to perform any aforementioned documented procedures
Data Reviewed
Review of Other/Old Records Reveals: Labs, Records and Radiology Studies
Source: patient, records, family and ambulance crew
Patient Management
Discussion with other providers: Hospitalist (Discussed with hospitalist), Public Health Dietitian (Discussed with neurologist), Radiologist (Discussed with neurologist) and Other (Discussed with neurosurgical team at [facility])
Escalation/DeEscalation of care consider admission/obs:
Admission indicated
ED Attending Note
-
Portions of this chart may have been created with voice recognition software.� Occasional wrong word or��sound alike� substitutions may have occurred due to the inherent limitations of voice recognition software.
Discharge Plan
Departure
Patient Disposition: Admit
Date of Disposition: 09/11/24
Time of Disposition: 12:00
Admit to doctor: Kelly
Presentation/result/management discussed w/ accepting MD/DO: Hospitalist
Discharge Problem:
Status epilepticus, Acute left hemiparesis
Prescriptions:
No Action
atorvastatin 80 mg tablet
80 mg PO DAILY
lisinopril 20 mg tablet
20 mg PO DAILY
aspirin 81 mg tablet,delayed release (DR/EC)
81 mg PO QPM
omeprazole 20 mg capsule,delayed release(DR/EC)
20 mg PO BID
metoprolol succinate 25 mg tablet extended release 24 hr
25 mg PO HS
ondansetron HCl 8 mg tablet
8 mg PO HS
temozolomide 20 mg Capsule
20 mg PO HS
Rx Instructions:
started 08/17/24 for 42 days, taken with 140mg
temozolomide 140 mg capsule
140 mg PO HS
Rx Instructions:
started 08/17/24 for 42 days, taken with 20mg
dexamethasone 4 mg Tablet
4 mg PO BID@0800,1200,1800
lacosamide [Vimpat] 100 mg Tablet
100 mg PO BID
Referrals:
UNKNOWN - PT NOT,[facility] [Family Provider] -
Interventions
Interventions:
ED- Cardiac Assessment Last Done: 09/11/24 10:38
ED- Neurological Assessment Last Done: 09/11/24 10:15
ED- Pulmonary Assessment Last Done: 09/11/24 10:31
Discharge Date and Time
Print Language: SURINAMESE
[2024-09-11 10:37] LABS: % Basophils 0.2 % (0-2); % Eosinophils 0.8 % (0-6); % Immature Granulocytes 4.5 % (0-0.5); % Lymphocytes 6.8 % (20.5-51.1); % Monocytes 2.7 % (1.7-9.3); Absolute Eosinophils 0.1 10^3/uL (0-0.7); Absolute Immature Granulocytes 0.6 10^3/uL (0-0.05); Absolute Lymphocytes 0.9 10^3/uL (1.2-3.4); Absolute Monocytes 0.4 10^3/uL (0.1-0.6); Absolute Neutrophils 10.9 10^3/uL (1.4-6.5); Hematocrit 41.9 % (39.0-52.0); Hemoglobin 13.8 g/dL (13.0-18.0); Mean Corp Hgb Conc. 32.9 g/dL (33.0-37.0); Mean Corpuscular Hgb 31.4 pg (27.0-31.0); Mean Corpuscular Volume 95.2 fL (80.0-94.0); Mean Platelet Volume 9.3 fL (7.4-10.4); Nucleated Red Blood Cells % 0.2 % (-); Platelet Count 441 10^3/uL (130-400); Red Cell Dist. Width 19.9 % (11.5-14.5); White Blood Cell Count 12.9 10^3/uL (4.8-10.8)
[2024-09-11 10:37] LABS: Glucose - Point of Care 106 mg/dl (70-99)
--- NOTE | 2024-09-11 10:40 | CON.NEURO ---
Consultation
Order
Date of Consultation: 09/11/24
Requesting Provider: Oscar Briggs MD
Reason for Consult: stroke alert: 10:24 am
Neurology Consultation Note.
HPI: This is a 59-year-old man who presented to [facility] on 09/11/2024 with seizure cluster.
According to medical personnel patient had witnessed seizure at home followed by recurrent seizures witnessed by EMS.
Patient's Decadron was reportedly recently reduced.
ER VS: 157/81, 103, afebrile.
EKG: Sinus tachycardia at 120, QTc Int : 460 ms
PDMP: Lacosamide 100 Mg�30 tablets filled in on 08/21/2024 and 09/04/2024
Labs: Glucose�106, sodium�130, WBCs�12.9, platelets�441, CK�45.
CT head wo contrast�bilobed tumor versus 2 adjacent tumors in the posterior aspect of the right parietal lobe consistent with patient's known glioblastoma and associated with 3 cm overlying craniotomy flap
The more posterior component of the tumor is associated with a high density rim which is more prominent than on 08/19/2024 (calcification vs hemorrhage).
CTA head/neck-no hemodynamically significant stenosis, dissection or aneurysm or vascular malformation.
MAR: Lorazepam 1 m AM given at 10:20 AM
PMH: GBM(05/2004) on Temodar, CAD, HTN, DLP, IFG, PFO, SCC, GERD/Eosinophilic esophagitis, BMI 29.1, h/o of retinal detachment
PSH: Right posterior parietal craniotomy(06/2024), PTCI, left hand ORIF, cataract extraction, left knee arthroplasty,
SH: , non-smoker; daily ETOH 3 drinks/nigh of hard liquor
FH: Not pertinent
All: Keppra�intolerance, Polysporin, iodine
ROS: Unable due to encephalopathy
General: Intubated, sedated
Cardio: Regular rate
Neuro:
Mental Status: Eyes open. Does not attend to follow requests
Cranial Nerves: Pupils are 3 mm, nonreactive, negative corneals, oculocephalics, gag.
Motor: Flaccid quadriplegia
Reflexes: Negative clonus bilaterally
Sensory: Unable to assess
Coordination: Rhythmic flexor posturing
Gait: deferred
Assessment and Plan:
I. Symptomatic focal status epilepticus. Not a candidate for IV TNK.
II. Hyponatremia
III. Multifactorial encephalopathy (epileptic, neoplastic, metabolic, toxic)
-Seizure precautions.
-Continue lacosamide 100 mg twice daily IV, start Depakote. Will consider Lamictal when able to swallow.
-Check Depakote level
-please check TSH, free T4, ua tox
-Continue thiamine IV
-Brain MRI with and without gadolinium
-Please obtain medical records from [facility] [address]
-Continue dexamethasone 4 mg 3 times daily with GI prophylaxis.
-Routine EEG tomorrow
-Ativan IV as needed for GTC's lasting over 2 minutes or associated hypoxia
-DVT prophylaxis.
I personally reviewed all radiology and labs along with past medical records pertinent to current medical problems. Total time spent in patient care is 60 minutes.
Thank you for allowing us to participate in the care of this patient. We will continue to follow. Please do not hesitate to contact us with any questions or concerns.
Subjective/Objective
Subjective Data
Date of Service: September 11, 2024
Objective Data
Vital Signs
Temp Pulse Resp BP Pulse Ox
36.9 C 91 21 157/81 91
09/11/24 10:26 09/11/24 10:30 09/11/24 10:30 09/11/24 10:21 09/11/24 10:31
Lab Results
09/11/24 10:27
Patient Allergies
bacitracin [From Polysporin] Allergy (Verified 09/11/24 10:15)
Hives
polymyxin B sulfate [From Polysporin] Allergy (Verified 09/11/24 10:15)
Hives
shellfish derived Allergy (Verified 09/11/24 10:15)
Unknown
Medications
-
Active Medications
Generic Name Dose Route Start Last Admin
Trade Name Freq PRN Reason Stop Dose Admin
Valproate Sodium 1,000 mg/ 60 mls @ 60 mls/hr 09/11/24 10:36
Sodium Chloride IV 09/11/24 11:35
NOW STA
Home Medications
�Medication �Instructions �Recorded
aspirin 81 mg tablet,delayed 81 mg PO DAILY Blood Clot 05/28/24
release Prevention/Tx
atorvastatin 80 mg tablet 80 mg PO DAILY High Cholesterol 05/28/24
coenzyme Q10 100 mg capsule 100 mg PO DAILY Supplement 05/28/24
(CoQ-10)
lisinopril 20 mg tablet 20 mg PO DAILY Blood Pressure 05/28/24
metoprolol succinate 25 mg 25 mg PO HS Blood Pressure 05/28/24
tablet,extended release 24 hr
omeprazole 20 mg capsule,delayed 20 mg PO BID Gastrointestinal Issue 05/28/24
release
acetaminophen 500 mg tablet 1,000 mg PO DAILYPRN PRN mild pain 08/19/24
calcium polycarbophil 625 mg 625 mg PO DAILY 08/19/24
tablet (FiberCon)
ondansetron HCl 8 mg tablet 8 mg PO Q8HPRN PRN nausea 08/19/24
temozolomide 140 mg capsule 140 mg PO QPM 08/19/24
temozolomide 20 mg capsule 20 mg PO QPM 08/19/24
Vital Signs and Labs
-
Vital Signs and Labs:
Vital Signs
Temp Pulse Resp BP Pulse Ox
36.9 C 100 15 138/85 98
09/11/24 10:26 09/11/24 11:40 09/11/24 11:40 09/11/24 11:40 09/11/24 11:40
Lab Results
09/11/24 10:27
09/11/24 10:27
Sodium 130 mmol/L (135-145) L 09/11/24 10:27
Potassium 5.0 mmol/L (3.5-5.1) 09/11/24 10:27
BUN 22 mg/dl (9-20) H 09/11/24 10:27
Glucose 109 mg/dl (70-99) H 09/11/24 10:27
Calcium 8.1 mg/dl (8.4-10.2) L 09/11/24 10:27
Home Medications
-
Home Medications
aspirin 81 mg tablet,delayed release 81 mg PO QPM Blood Clot Prevention/Tx 05/28/24
atorvastatin 80 mg tablet 80 mg PO DAILY High Cholesterol 05/28/24
lisinopril 20 mg tablet 20 mg PO DAILY Blood Pressure 05/28/24
metoprolol succinate 25 mg tablet,extended release 24 hr 25 mg PO HS Blood Pressure 05/28/24
omeprazole 20 mg capsule,delayed release 20 mg PO BID Gastrointestinal Issue 05/28/24
ondansetron HCl 8 mg tablet 8 mg PO HS 08/19/24
temozolomide 140 mg capsule 140 mg PO HS 08/19/24
temozolomide 20 mg capsule 20 mg PO HS 08/19/24
dexamethasone 4 mg tablet 4 mg PO BID@0800,1200,1800 09/11/24
lacosamide 100 mg tablet (Vimpat) 100 mg PO BID 09/11/24
[2024-09-11 10:53] LABS: ALT (SGPT) 54 U/L (0-50); AST (SGOT) 25 U/L (17-59); Albumin 3.4 g/dl (3.5-5.0); Alkaline Phosphatase 67 U/L (38-126); Blood Urea Nitrogen 22 mg/dl (9-20); Calcium 8.1 mg/dl (8.4-10.2); Carbon Dioxide 26 mmol/L (22-30); Chloride 98 mmol/L (98-107); Creatine Phosphokinase 45 U/L (55-170); Estimated Creatinine Clearance 102 ml/min; Glucose 109 mg/dl (70-99); Sodium 130 mmol/L (135-145); Total Bilirubin 0.8 mg/dl (0.2-1.3); Total Protein 5.6 g/dl (6.3-8.2); eGFR > 60.00
[2024-09-11] MEDS: DEPACON 60 MG IV ×2 (10:59→11:10)
[2024-09-11] MEDS: VIMPAT 100 MG IV (11:39)
--- NOTE | 2024-09-11 13:38 | EEG.RPT ---
Electroencephalogram Report
Recording
Date of EE09/11/24
Type of EEG: Routine
Length of EEG recordin minutes
Done with Video Recording: Yes
Patient Status: Emergency Room
Recording Conditions: Awake and Drowsy
Hyperventilation Performed: No
Photic Stimulation Performed: Yes
Report
LESS THAN 1 HOUR EEG REPORT
LESS THAN 1 HOUR EEG INTERPRETATION:
Severely abnormal EEG for age due to near continuous sharp wave discharges
CLINICAL CORRELATION:
This study was suggestive of focal onset, status epilepticus.
Immediate clinical correlation is advised.
METHODS:
A 21 channel digitized electroencephalogram (EEG) was performed in the Clinical Neurophysiology Laboratory. The 10/20 international system of electrode placement was used with ECG and lateral/vertical eye movements recorded. Video was recorded. The
[employer] quantitative EEG system was utilized.
ELECTROENCEPHALOGRAPHER IMPRESSION(S):
Quality of study: Good
Background
Maximum: delta, poorly maintained
Anterior-posterior gradient absent
Sleep
Not clearly demonstrated
Photic Stimulation
Failed to activate the record
ECG
Normal sinus rhythm
ABNORMAL EEG Activity
Medium amplitude nearly continuous 3-4/Hz frequency right temporal sharp waves demonstrated with gaps up to 5 seconds, usually 1 second of delta activity.
--- NOTE | 2024-09-11 13:48 | HPS.HSE ---
Family Physician
-
Family Physician: INTERVIEWE UNKNOWN - PT NOT
Chief Complaint
-
witnessed Szs
History of Present Illness
I could not get any information from the patient as acuity
Information gathered by chart review and speaking with the ER staff.
HPI
59M HX glioblastoma follows at [place] on chemotherapy and radiation therapy. He had tumor resected in June. Seen at ER
- pw Sz clusters
- witnessed seizure at home followed by multiple focal seizures witnessed by EMS.
- He arrives to ER with continued partial seizure activity twitching the left face and eyes.
- noted left hemiparesis which is new.
- He was seen in consultation with neurology here.
- He received 3 g of Ativan
- 1 hour EEG which did show signs concerning for status;
- Hence was given Vimpat 100 mg IV and Depakote 2 g IV with improvement in EEG findings.
Neurology okay with admitting to the ICU here does not feel that he needs continuous EEG or additional care at a tertiary center and does not wish for him to be transferred to a tertiary center.
- Per ER attd marley telles neurosurgeon and he agreed that patient can stay here does not need any acute intervention from their perspective.
Medical History
Past Medical History
Past Medical History: Reports Cancer (HX glioblastoma follows at [place] on chemotherapy and radiation therapy.), HTN, Hypercholesterolemia and Seizures
Past Surgical History: Reports Other
Additional Past Surgical History:
HX glioblastoma follows at [place] on chemotherapy and radiation therapy and tumor resection in June 2024
Social History
Tobacco: Non-smoker
Alcohol: None
Family History
Family History: Not pertinent
Allergies / Home Medications
Allergies reflects when Allergies were last updated in [facility] [employer].
Home Medications with original date entered in [employer]
Allergy/Medication List:
Allergies
Allergy/AdvReac Type Severity Reaction Status Date / Time
bacitracin [From Polysporin] Allergy Hives Verified 09/11/24 10:15
polymyxin B sulfate Allergy Hives Verified 09/11/24 10:15
[From Polysporin]
shellfish derived Allergy Unknown Verified 09/11/24 10:15
Home Medications
aspirin 81 mg tablet,delayed release 81 mg PO QPM Blood Clot Prevention/Tx 05/28/24
atorvastatin 80 mg tablet 80 mg PO DAILY High Cholesterol 05/28/24
lisinopril 20 mg tablet 20 mg PO DAILY Blood Pressure 05/28/24
metoprolol succinate 25 mg tablet,extended release 24 hr 25 mg PO HS Blood Pressure 05/28/24
omeprazole 20 mg capsule,delayed release 20 mg PO BID Gastrointestinal Issue 05/28/24
ondansetron HCl 8 mg tablet 8 mg PO HS 08/19/24
temozolomide 140 mg capsule 140 mg PO HS 08/19/24
temozolomide 20 mg capsule 20 mg PO HS 08/19/24
dexamethasone 4 mg tablet 4 mg PO BID@0800,1200,1800 09/11/24
lacosamide 100 mg tablet (Vimpat) 100 mg PO BID 09/11/24
Review of Systems
-
Unable to obtain full review of systems at this time due to: Acuity
History Source: Physician
Physical Exam
Vital Signs
Vital Signs
Temp Pulse Resp BP Pulse Ox
98.5 F 100 15 138/85 98
09/11/24 10:26 09/11/24 11:40 09/11/24 11:40 09/11/24 11:40 09/11/24 11:40
Physical Exam
General: Other (sleeping and snoring)
HEENT: Other (wearing Face mask )
Respiratory: Clear and Non Labored Respirations
Cardiac: Other
Breast: Other
GI: Other
Genito-urinary: Other
Neuro: Sedated
Psych: Other (sedated )
Laboratory Results
-
09/11/24 10:27
02/18/25 10:27
Laboratory Results
Total Bilirubin 0.8 mg/dl (0.2-1.3) 09/11/24 10:27
AST 25 U/L (17-59) 09/11/24 10:27
ALT 54 U/L (0-50) H 09/11/24 10:27
Alkaline Phosphatase 67 U/L (38-126) 09/11/24 10:27
Data Reviewed
-
CT Scan: Report Reviewed by me
Medical Tests (Nuc Med, Echo, EKG etc): Report Reviewed by me
Lab Data: Labs Reviewed by me
Impression/Plan
-
Reviewed VS: Afebrile. Tachycardic. Normotensive. POX 91 on RA. 98 on 4L NC 100kg
Laboratory Tests
09/11/24 09/11/24
10:26 10:27
WBC 12.9 H
Hgb 13.8
MCV 95.2 H
Plt Count 441 H
Sodium 130 L
BUN 22 H
Creatine Kinase 45 L
Total Protein 5.6 L
Albumin 3.4 L
POC Glucose 106 H
CXR; pending final report
CT Head W/o Iv Contrast ; No acute intracranial abnormality noted.
H & N CTA
There is no evidence of major intracranial branch occlusion
There is a bilobed tumor versus 2 adjacent tumors in the posterior aspect of the right parietal lobe more thoroughly discussed on the CT head obtained earlier today and subjacent to the craniotomy
No prior hospitalist admission:
ASSESSMENT & PLAN
Currently sedated
No Sz
Sz clusters concerning for status epilepticus
1 hour EEG which did show signs concerning for status;
At ER : S/P IV 3 g of Ativan, Vimpat 100 mg IV and Depakote 2 g IV with improvement in EEG findings.
- post ictal lethargic encephalopathy
- IV Ativan 2mg q3h PRN for break thru Szs
- switcht to IV Vimpat 100mg BID in place of PO
- supplemental O2
- protecting his airway
- she is very resistant to having him intubated but if worse comes to worse she was agreeable to intubation.
- Neuro consulted
New left hemiparesis
2 adjacent tumors in the posterior aspect of the right parietal lobe noted
HX glioblastoma follows at [place] on chemotherapy and radiation therapy. He had tumor resected in June.
- switch to IV Decadron 4mg Q12h
Essential HTN
HLD
- holding PO med still clear by speech
DVT Px: SCD
Full code
ICU
Total Critical Care Time__60___ minutes. I was immediately available to the patient and staff. I personally examined, reviewed labs, diagnostic images/reports, interpretations, treatment plans, discussed patient care with other providers and
family or caregivers (if patient is unable to make decisions), entered orders as appropriate and documented the medical record.
[2024-09-11 16:11] LABS: Amphetamines Negative (Negative); Barbiturates Negative (Negative); Benzodiazepines Positive (Negative); Buprenorphine Negative (Negative); Cocaine Negative (Negative); Marijuana Negative (Negative); Methadone Negative (Negative); Methamphetamines Negative (Negative); Opiates Negative (Negative); Phencyclidine Negative (Negative); Tricyclic Antidepressants Negative (Negative)
[2024-09-11] MEDS: THIAMINE INJECTION 100 MG IV (16:12)
[2024-09-11] MEDS: DECADRON 4 MG IV ×2 (16:12→23:31)
[2024-09-11] MEDS: NSS 1000 IV (16:12)
[2024-09-11 16:34] LABS: Fentanyl, Urine Negative (Negative)
--- NOTE | 2024-09-11 16:54 | CON.INTV ---
Consultation
Consultation Request
Date/Time Consultation Requested: 09/11/24
Date/Time Consultation Performed: 09/11/24
Performing Provider: Sandra
Reason for Consultation: Seizure
Medical History
-
History of Present Illness:
Patient is a 59-year-old male with previous history of glioblastoma status post chemo and radiation therapy/tumor resection in June, seizure disorder presenting from home with witnessed seizure. He also had several seizures and route by EMS.
Arrives in the ER with continued partial seizure activity and notable twitching in the left face and eyes. He was noted to have left hemiparesis which is new, received 3 g of Ativan in total. 1 hour EEG performed did not show signs concerning for
status epilepticus. He is dosed with Vimpat and Depakote in the ER. He is admitted to ICU for seizure activity, was declined tertiary center transfer to [place]. He is considered nonoperable per neurosurgery as well.
Past Medical History
Past Medical History: Other
Social History
Tobacco: Non-smoker
Alcohol: Daily
Drug: None
Family History
Family History: Reviewed & Not Pertinent
Allergies / Home Medications
Allergies
Allergy/AdvReac Type Severity Reaction Status Date / Time
bacitracin [From Polysporin] Allergy Hives Verified 09/11/24 10:15
polymyxin B sulfate Allergy Hives Verified 09/11/24 10:15
[From Polysporin]
shellfish derived Allergy Anaphylaxis Verified 09/11/24 15:29
Home Medications
�Medication �Instructions �Recorded �Confirmed �Last Taken �Type
aspirin 81 mg tablet,delayed 81 mg PO QPM Blood Clot 05/28/24 09/11/24 08/19/24 History
release Prevention/Tx
atorvastatin 80 mg tablet 80 mg PO DAILY High Cholesterol 05/28/24 09/11/24 08/19/24 History
lisinopril 20 mg tablet 20 mg PO DAILY Blood Pressure 05/28/24 09/11/24 08/19/24 History
metoprolol succinate 25 mg 25 mg PO HS Blood Pressure 05/28/24 09/11/24 08/18/24 History
tablet,extended release 24 hr
omeprazole 20 mg capsule,delayed 20 mg PO BID Gastrointestinal Issue 05/28/24 09/11/24 08/19/24 History
release
ondansetron HCl 8 mg tablet 8 mg PO HS Gastrointestinal Issue 08/19/24 09/11/24 08/19/24 History
temozolomide 140 mg capsule 140 mg PO HS Cancer 08/19/24 09/11/24 08/18/24 History
temozolomide 20 mg capsule 20 mg PO HS Cancer 08/19/24 09/11/24 08/18/24 History
dexamethasone 4 mg tablet 4 mg PO TID@0800,1200,1800 Cancer 09/11/24 09/11/24 Unknown History
lacosamide 100 mg tablet (Vimpat) 100 mg PO BID Seizures 09/11/24 09/11/24 Unknown History
Review of Systems
-
Unable to Obtain full review of systems at this time due to: Acuity
History Source: Family
Vitals / Labs / Diagnostic Testing
Vital Signs
Temp Pulse Resp BP Pulse Ox
98.5 F 78 14 116/77 98
09/11/24 10:26 09/11/24 16:30 09/11/24 16:30 09/11/24 16:30 09/11/24 16:36
Lab Data
09/11/24 10:27
09/11/24 10:27
Laboratory Results
09/11/24
16:05
PT Cancelled
INR Cancelled
APTT Cancelled
Diagnostic Testing:
Physical Exam
-
HEENT: Normocephalic, Anicteric, Moist Mucous Membranes and Other (facial flushing)
Cardiovascular: S1/S2 and Regular Rhythm
Respiratory: Clear and Non-Labored Respirations
GI: Soft, Non Distended and Non Tender
Neurology: Other (lethargic, minimally arousable)
Skin: Warm and Dry
General: Comfortable and Other (NAD)
Assessment
-
Patient is a 59-year-old male with previous history of glioblastoma status post chemo and radiation therapy/tumor resection in June, seizure disorder presenting from home with witnessed seizure. He also had several seizures and route by EMS.
Arrives in the ER with continued partial seizure activity and notable twitching in the left face and eyes. He was noted to have left hemiparesis which is new, received 3 g of Ativan in total. 1 hour EEG performed did not show signs concerning for
status epilepticus. He is dosed with Vimpat and Depakote in the ER. He is admitted to ICU for seizure activity, was declined tertiary center transfer to [place]. He is considered nonoperable per neurosurgery as well.
Witnessed multiple generalized seizure at home s/p ativan x 3
Daily alcohol use, possible withdrawal
L hemiparesis
Leukocytosis, mild
Thrombocytosis
Hyponatremia, mild
Conditions present OFFICE RN
History of glioblastoma follows at [place] on chemotherapy and radiation therapy
Recent transfer/admission s/p [place] [facility] Crainotomy 06/2024, on chronic steroids
HTN
Hypercholesterolemia
Seizure disorder, adverse rxn to [facility]
Eosinophilic esophagitis
Squamous cell carcinoma of skin
Detached retina repair
ORIF L hand
Cataract extraction B/L
L knee surgery
Cerebral angiogram 05/29/2024
H/o STEMI @ [facility] 03/29-03/31/20
Plan
Seizure events noted, s/p ativan
Postictal currently
Imaging noted, no acute findings
Neuro and NeuroSx aware, non-operable now
AEDs are loaded, continue further management per teams
ETOH w/d is a concern
Denies pain at this time.
Pain/sedation: PRN, MSAS
RASS goals: 0
Resume steroids
Hemodynamically stable, not requiring pressors.
Cardiac history reviewed--HTN
No prior ECHO for review
Resume home meds as tolerated
Monitor on telemetry
Oxygen needs: stable on RA
Prior history of lung disease: none
Supplemental O2 as indicated to maintain sats > 89%
CXR/CT reviewed indicating possible mild PNA, aspiration possible
Can follow clinically for now if there are no other signs/symptoms
NPO, resume diet when able
Aspiration precautions, HOB > 30 degrees
Speech therapy eval
PPI resumed due to history of EE
Creat at baseline, no history of renal disease
Void trials
Follow urine output, critical I/Os
Replete electrolytes as needed
No signs/symptoms suspicious for infectious etiology at this time
Observe off antibiotics for now
Follow fever trend, WBC count
CBC stable, no signs of bleeding or coagulopathy.
DVT prophylaxis as assessed based on risk, including mechanical SCDs
Can transfuse if indicated for Hb <7, plt < 10
No prior h/o diabetes or thyroid disease
Monitor accuchecks PRN/SS coverage if needed
If not further events, can transfer to floors
Diagnostic Data
Chest X-Ray: 09/11/24- There is minimal interstitial airspace disease in the lateral aspect of the anterior segment of the right upper lobe suggesting minimal interstitial pneumonia
08/19/24- No acute disease of the chest. Intubation. No pneumothorax
CT Scan:
HCT - No acute intracranial abnormality noted.
H & N CTA - There is no evidence of major intracranial branch occlusion. There is a bilobed tumor versus 2 adjacent tumors in the posterior aspect of the right parietal lobe more thoroughly discussed on the CT head obtained earlier today and
subjacent to the craniotomy
Echo:
PFT's:
Reports and relevant images were personally reviewed.
Critical Care time 61 mins -- The patient is admitted for acute critical illness for the treatment of vital organ failure and/or prevention of further life-threatening conditions. Total care includes time spent in review of history, physical exam,
medications, hemodynamic/ventilator parameters, laboratory data, imaging and discussion with house staff, pharmacy, respiratory therapy, litigation legal secretary, and nursing.
[2024-09-11 17:03] LABS: TSH Reflex To Free T4 0.32 uIU/ml (0.47-4.68)
[2024-09-11 17:30] LABS: INR 0.95
[2024-09-11 17:31] LABS: APTT 21.2 Sec (23.4-35.0)
[2024-09-11 17:33] LABS: Free T4 0.63 ng/dl (0.78-2.19)
--- NOTE | 2024-09-11 17:34 | PTCARENOTE ---
Received pt via stretcher from ER into ICU rm [id number] @ approx 1530. Pt. drowsy, awakens to verbal stimuli; oriented x3; denies pain. Speech clear but slow. Able to WELLS x4 w equal strength. L sided paralysis resolved. Minimal L facial droop,
reported improved from ER. R pupil 4mm/L pupil 3mm; b/l sluggish. Pt. and report pupils unequal @ baseline. Pt. and also report adverse behavioral reaction to Keppra. Neuro, Dr. Blue made aware of above findings. SR on monitor. SPo2
97% on RA. +BS, abd soft/round obese. Strict NPO status maintained. Assisted w urinal; output 2L since arrival to unit; Dr. Blue also made aware. Skin intact; generalized flushed. #18 L AC, # 18 L wrist, and #18 R AC patent, dressing c/d/i.
NSS @ 80mL/hr initiated- see SEP. @ bedside. Neuro checks maintained per orders- see flow sheet. Pt. reported daily ETOH use; liquor; 'few' drinks per day and last drink was last night; Dr. Flores aware. Bedrest d/t postictal state.
Instructed on how to report care concerns and call pancho dodson in reach.
[2024-09-11 18:04] LABS: Depakane 44.1 ug/ml (50.0-120.0)
[2024-09-11] MEDS: VIMPAT 200 MG IV (20:06)
--- NOTE | 2024-09-11 20:50 | PTCARENOTE ---
Received patient drowsy, in bed, arouses to verbal stimuli. AAOx3, pupils unequal, right 4 mm, left 3 mm, both sluggish. Slow and clear speech, Q2 neuro checks ongoing. Normal sinus, 70s, BP stable, normothermic. No edema, palpable radial and pedal
pulses b/l. 97% on room air, lung sounds clear. Abdomen soft, round, obese, positive bowel sounds. Urinal to void, one episode of incontinence, sheets changed, cleaned up. Skin intact, flushed throughout. PIVs patent, WNL, NSS ongoing per order.
at bedside, call deleon within reach.
[2024-09-11] MEDS: PROTONIX IV 40 MG IV (21:30)
[2024-09-11] MEDS: NSS (PRESERVATIVE FREE) 10 ML IV (21:30)
--- NOTE | 2024-09-11 23:42 | PTCARENOTE ---
Patient brushed teeth, warm blanket given. Otherwise patient assessment unchanged from previous, call deleon within reach.
[2024-09-12] VITALS (16 sets, daily range): BP systolic 105–145; BP diastolic 73–91; PULSE 87–88; BMI 28.6
--- NOTE | 2024-09-12 02:55 | DOWNTIME ---
There was a [employer] Client Maitre D Downtime on 09/12/2024 from 0100 to 09/12/2023 at 0235 . Downtime documentation of patient's care, including medication administrations, has been reconciled in the electronic record per guidelines. Refer to the
patient's paper chart under the miscellaneous tab to see printed paper medication records and downtime forms.
[2024-09-12] MEDS: NSS 1000 IV (04:04)
--- NOTE | 2024-09-12 04:21 | PTCARENOTE ---
Patient assessment unchanged from previous, call deleon within reach. Labs sent.
[2024-09-12 04:39] LABS: Hematocrit 38.6 % (39.0-52.0); Hemoglobin 13.2 g/dL (13.0-18.0); Mean Corp Hgb Conc. 34.2 g/dL (33.0-37.0); Mean Corpuscular Hgb 31.6 pg (27.0-31.0); Mean Corpuscular Volume 92.3 fL (80.0-94.0); Mean Platelet Volume 9.9 fL (7.4-10.4); Platelet Count 267 10^3/uL (130-400); Red Blood Cell Count 4.18 10^6/uL (4.70-6.10); Red Cell Dist. Width 20.3 % (11.5-14.5); White Blood Cell Count 7.5 10^3/uL (4.8-10.8)
[2024-09-12 06:23] LABS: ALT (SGPT) 109 U/L (0-50); AST (SGOT) 37 U/L (17-59); Albumin 3.1 g/dl (3.5-5.0); Alkaline Phosphatase 54 U/L (38-126); Blood Urea Nitrogen 19 mg/dl (9-20); Calcium 8.5 mg/dl (8.4-10.2); Carbon Dioxide 25 mmol/L (22-30); Chloride 100 mmol/L (98-107); Estimated Creatinine Clearance > 125 ml/min; Glucose 110 mg/dl (70-99); Potassium 4.7 mmol/L (3.5-5.1); Sodium 128 mmol/L (135-145); Total Bilirubin 1.1 mg/dl (0.2-1.3); Total Protein 5.3 g/dl (6.3-8.2); eGFR > 60.00
--- NOTE | 2024-09-12 06:53 | W.PN.HOSP.TC ---
Addendum entered and electronically signed by Heidi Morrison MD 09/12/24 16:45:
Mild Hyponatremia, outpatient follow up BMP with primary care provider recommended.
Addendum entered and electronically signed by Heidi Morrison MD 09/12/24 16:33:
MRI Brain appreciated no Acute Change from prior imaging/reports
Tolerating Diet
PT/OT appreciated no needs
Discussed with Neuro, patient medically stable for discharge home with increased dose Vimpat 200 mg BID (on 100 mg BID prior to hospitalization)
Total Time Preparing Discharge ___40____ minutes including examination of the patient, summary of the hospital stay, instructions for continuing care to all relevant caregivers; and preparation of discharge records, prescriptions, and referral
forms if necessary.
Addendum entered and electronically signed by Heidi Morrison MD 09/12/24 16:25:
Low TSH T4 possible side effect steroids vs true hypothyroidism. Low dose Synthroid started with follow up thyroid function test in 1 month recommended.
Original Note:
Today's Communication/Plan
-
Possible Discharge Later Today vs Downgrade
sz medications as per Neuro
cont steroids
Follow up Brain MRI
resume home oral medications, cont IV AED steroids for now
resume regular diet
ST/PT/OT
follow up repeat Thyroid Function Test
Assessment / Plan
Assessment / Plan
Physical Exam
General: No acute distress, appears comfortable at this time
HEENT: no scleral icterus, moist mucus membranes, suspect parker face due to fdc steroid use
Respiratory: clear to auscultation b/l stable respiratory status on room air
Cardiac: S1/S2 no murmurs rubs gallops
GI: Soft Nontender bowel sounds present
Ext: not edema cyanosis
Neuro: AOx3 conversant coherent no focal weakness noted strength 5/5 all extremities
Psych: Coherent
59M Glioblatoma s/p chemorad on oral chemo sz d/o htn hld STEMI 2019 here for evaluation/treatment cluster sz event with associate Guy paralysis since resolved
Sz clusters concerning for status epilepticus
1 hour EEG which did show signs concerning for status;
At ER : S/P IV 3 g of Ativan, Vimpat 100 mg IV and Depakote 2 g IV with improvement in EEG findings.
- post ictal lethargic encephalopathy since resolved
- IV Ativan 2mg q3h PRN for break thru Szs
- cont IV Vimpat 100mg BID in place of PO for now
- supplemental O2 weaned off stable respiratory status on room air
- Neuro consult appreciated pending MRI
-Ole[employer] Hasher And Renderer eval appreciated
New left hemiparesis, likely Guy paralysis since resolved
2 adjacent tumors in the posterior aspect of the right parietal lobe noted
HX glioblastoma follows at [facility] on chemotherapy and radiation therapy. He had tumor resected in June.
- cont IV Decadron 4mg Q8
Essential HTN
HLD
- resumed home meds with resolution of encephalopathy as above
Abnormal Thyroid Function Test
-Low TSH, Low T4
-follow up repeat
ST/PT/OT eval requested
DVT Px: SCD
Full code
discussed with patient and patient's Catherine
I spent a total of 60 minutes with the patient or on the floor. More than 50% of this time involved counseling and coordination of care.
Anticipated Discharge: Within 24 hours
Subjective/Interval History
-
Date of Service: September 12, 2024
Seen and examined at bedside in no acute distress sitting up comfortably in chair. AOx3 conversant coherent. Moving all extremities without issue. No significant focal weakness noted.
Objective Data
-
Labs:
Laboratory Results
09/12/24 09/12/24
04:15 05:34
WBC 7.5
Hgb 13.2
Hct 38.6 L
Plt Count 267 D
Sodium Cancelled 128 L
Potassium Cancelled 4.7
Chloride Cancelled 100
Carbon Dioxide Cancelled 25
BUN Cancelled 19
Creatinine Cancelled 0.7
Glucose Cancelled 110 H
Calcium Cancelled 8.5
Total Bilirubin Cancelled 1.1
AST Cancelled 37
ALT Cancelled 109 H
Alkaline Phosphatase Cancelled 54
Vital Signs:
Vital Signs
Temp Pulse Resp BP Pulse Ox
97.5 F 76 15 145/91 97
09/12/24 04:20 09/12/24 06:00 09/12/24 06:00 09/12/24 06:00 09/12/24 06:00
I&O
09/10/24 09/11/24 09/12/24
06:59 06:59 06:59
Intake Total 1200 / 1200
Output Total 3850 / 3850
Balance -2650 / -2650
--- NOTE | 2024-09-12 07:16 | W.PN.INTV ---
Today's Communication / Plan
Recommendations
More awake today, no events ON, stable on RA
Tolerating diet, OOB, steady with ambulation
Transfer to tele per team vs discharge pending MRI
Further neurologic management
We will sign off upon transfer or await d/c planning
Assessment
-
Patient is a 59-year-old male with previous history of glioblastoma status post chemo and radiation therapy/tumor resection in June, seizure disorder presenting from home with witnessed seizure. He also had several seizures and route by EMS.
Arrives in the ER with continued partial seizure activity and notable twitching in the left face and eyes. He was noted to have left hemiparesis which is new, received 3 g of Ativan in total. 1 hour EEG performed did not show signs concerning for
status epilepticus. He is dosed with Vimpat and Depakote in the ER. He is admitted to ICU for seizure activity, was declined tertiary center transfer to [place]. He is considered nonoperable per neurosurgery as well.
Witnessed multiple generalized seizure at home s/p ativan x 3
Daily alcohol use, possible withdrawal
L hemiparesis
Leukocytosis, mild
Thrombocytosis
Hyponatremia, mild
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
History of glioblastoma follows at [place] on chemotherapy and radiation therapy
Recent transfer/admission s/p [place] [facility] Crainotomy 06/2024, on chronic steroids
HTN
Hypercholesterolemia
Seizure disorder, [facility]
Eosinophilic esophagitis
Squamous cell carcinoma of skin
Detached retina repair
ORIF L hand
Cataract extraction B/L
L knee surgery
Cerebral angiogram 05/29/2024
H/o STEMI @ [facility] 03/29-03/31/20
Plan
Seizure events noted, s/p ativan
Postictal--resolved
Imaging noted, no acute findings
Neuro and NeuroSx aware, non-operable now
AEDs are loaded, continue further management per teams
ETOH w/d is a concern
Denies pain at this time.
Pain/sedation: PRN, MSAS
RASS goals: 0
Resume steroids
Hemodynamically stable, not requiring pressors.
Cardiac history reviewed--HTN
No prior ECHO for review
Resume home meds as tolerated
Monitor on telemetry
Oxygen needs: stable on RA
Prior history of lung disease: none
Supplemental O2 as indicated to maintain sats > 89%
CXR/CT reviewed indicating possible mild PNA, aspiration possible
Can follow clinically for now if there are no other signs/symptoms
Diet advanced, tolerating
Aspiration precautions, HOB > 30 degrees
Speech therapy eval
PPI resumed due to history of EE
Creat at baseline, no history of renal disease
Void trials
Follow urine output, critical I/Os
Replete electrolytes as needed
No signs/symptoms suspicious for infectious etiology at this time
Observe off antibiotics for now
Follow fever trend, WBC count
CBC stable, no signs of bleeding or coagulopathy.
DVT prophylaxis as assessed based on risk, including mechanical SCDs
Can transfuse if indicated for Hb <7, plt < 10
No prior h/o diabetes or thyroid disease
Monitor accuchecks PRN/SS coverage if needed
Diagnostic Data
Chest X-Ray: 09/11/24- There is minimal interstitial airspace disease in the lateral aspect of the anterior segment of the right upper lobe suggesting minimal interstitial pneumonia
08/19/24- No acute disease of the chest. Intubation. No pneumothorax
CT Scan:
HCT - No acute intracranial abnormality noted.
H & N CTA - There is no evidence of major intracranial branch occlusion. There is a bilobed tumor versus 2 adjacent tumors in the posterior aspect of the right parietal lobe more thoroughly discussed on the CT head obtained earlier today and
subjacent to the craniotomy
Echo:
PFT's:
Reports and relevant images were personally reviewed.
Critical Care time 31 mins -- The patient is admitted for acute critical illness for the treatment of vital organ failure and/or prevention of further life-threatening conditions. Total care includes time spent in review of history, physical exam,
medications, hemodynamic/ventilator parameters, laboratory data, imaging and discussion with house staff, pharmacy, respiratory therapy, business process lead, and nursing.
Subjective Dataa
Subjective Data
Date of Service:
Date of Service: September 12, 2024
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
Subjective:
No clinical changes ON, stable on RA
More awake/conversant today
Objective Data
Data Reviewed
Vital Signs / I&O / Oxygen:
Vital Signs
Temp Pulse Resp BP Pulse Ox
97.5 F 76 15 145/91 97
09/12/24 04:20 09/12/24 06:00 09/12/24 06:00 09/12/24 06:00 09/12/24 06:00
Intake and Output
09/11/24 09/12/24 09/13/24
06:59 06:59 06:59
Intake Total 1200 / 1200
Output Total 3850 / 3850
Balance -2650 / -2650
SaO2 97
Nasal Cannula flow liters per 4
minute
Physical Exam
General: Comfortable and Other (NAD)
HEENT: Normocephalic, Anicteric and Moist Mucous Membranes
Cardiovascular: S1-S2 and Regular Rhythm
Respiratory: Clear and Non-Labored Respirations
GI: Soft, Non Distended and Non Tender
Neurology: Awake, Alert, Oriented and No Motor Deficits
Skin: Warm, Dry and Good Color
Labs/Micro/Reports
Lab Data
09/12/24 04:15
09/12/24 05:34
Laboratory Results
09/11/24 09/11/24
16:05 17:09
PT Cancelled 13.0
INR Cancelled 0.95
APTT Cancelled 21.2 L
[2024-09-12] MEDS: THIAMINE INJECTION 100 MG IV (07:56)
[2024-09-12] MEDS: DECADRON 4 MG IV (07:57)
[2024-09-12] MEDS: PROTONIX IV 40 MG IV (07:57)
[2024-09-12] MEDS: VIMPAT 200 MG IV (07:57)
[2024-09-12] MEDS: NSS (PRESERVATIVE FREE) 10 ML IV (07:57)
--- NOTE | 2024-09-12 08:30 | PTCARENOTE ---
recd, unable to obtain am labs, phlebotomy notified. oob to bathroom with assist, RW initially then not necessary. ambulated in hallway with monitor, RN, IV. returned to recliner. neuro exam noted intact, flat, no seizure activity, anisocoria
unchanged. flat affect. anxious to get moving, for MRI and discharge. maintained on chemo precautions. rest of assessment as documented.
[2024-09-12] MEDS: TYLENOL 650 MG PO (08:36)
--- NOTE | 2024-09-12 11:28 | CM ---
CM following re: discharge planning.
Discussed in Rounds, reviewed pt's chart, met with pt.
Pt is a 59 year old male, admitted with primary dx of Sz clusters concerning for status epilepticus.
Pt reports he lives with spouse and a son 2SH, 2 steps to enter, has 2 supportive children. 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 No DME, VN or SNF history.
Pt admitted to drinking alcohol daily. Pt reports he does not see it as a problem, described himself as a social drinking. Pt declined meeting with [facility].
PCP: Brendon Chung
Pharmacy: [facility]
D/C plan: home with anticipated no needs. Family to transport at discharge.
CM will follow with discharge plan updates as hospitalization progresses
[2024-09-12 11:47] LABS: TSH Reflex To Free T4 0.17 uIU/ml (0.47-4.68)
--- NOTE | 2024-09-12 11:54 | PTCARENOTE ---
remains oob in recliner, awaiting MRI later today, visitor bedside. Worked with PT/Ot in [facility].
--- NOTE | 2024-09-12 12:07 | PTOTSP ---
Pt is independent with mobility without need for any assistive devices. No acute PT needs were identified. Will sign off.
[2024-09-12] MEDS: ZESTRIL 20 MG PO (12:33)
--- NOTE | 2024-09-12 13:40 | W.PN.NEURO.1 ---
Today's Communication / Plan
-
.
Subjective/Objective
Subjective Data
Date of Service: September 12, 2024
Neurology follow-up note.
Mr. England reports no complaints. No recurrent seizures since admission. Patient denies having headaches, change in vision or strength.
The patient has been afebrile and normotensive.
Brain MRI w/wo drew(09/11/2024)-2 dominant lesions in the right parietal lobe, as described. When compared to the report from the most recent prior outside examination with service date 08/24/2024, no significant change in size. Probable smaller
adjacent lesions. No evidence to suggest acute hemorrhage. Mild mass effect. No midline shift.
Subtle T2 hyperintensity involving the right side of the splenium of the corpus callosum and along the medial margin of the right temporal lobe; findings which are also described in the report on the outside examination.
Labs: Sodium 130-128, free T4�0.63.
PMH: GBM(05/2024) on Temodar, CAD, HTN, DLP, IFG, PFO, SCC, GERD/Eosinophilic esophagitis, BMI 29.1, h/o of retinal detachment
PSH: Right posterior parietal craniotomy(06/2024), PTCI, left hand ORIF, cataract extraction, left knee arthroplasty,
SH: , non-smoker; daily ETOH 3 drinks/nigh of hard liquor
FH: Not pertinent
All: Keppra�intolerance, Polysporin, iodine
ROS: Negative for headache, chronic left visual field limitations, negative for chest pain abdominal pain, sensory symptoms change in balance.
General: Cushingoid appearance
Cardio: Regular rate. Extremities are without cyanosis or edema.
Neuro:
Mental Status: Alert, oriented to person, place, and date. Normal attention and recall. Good fund of knowledge. Follows complex requests across the midline. Comprehension, naming, and repetition intact.
Cranial Nerves: Unable to visualize optic discs due to insufficient dilatation. Pupils are equally round and reactive to light. EOMs full. intermittent left visual extinction no nystagmus. V1-V3 intact to light touch and pinprick bilaterally,
symmetric. Face symmetric. Normal hearing AU. The palate elevated well. SCMs and traps 5/5. Tongue midline. No dysarthria.
Motor: Normal bulk and tone. No pronator or arm drift. Strength 5/5 throughout. No clonus.
Reflexes: Limited exam due to positioning
Coordination: No dysmetria or tremor.
Gait: deferred
Assessment and Plan:
I. Treated focal status epilepticus.
II. Hyponatremia, abnormal TFTs
III. Multifactorial encephalopathy (epileptic, neoplastic, metabolic, toxic)
IV. Grade IV GBM
-Seizure precautions.
-Continue lacosamide 200 mg twice daily PO
-Sodium normalization if feasible
-Continue thiamine
-Continue dexamethasone 4 mg 3 times daily with GI prophylaxis.
-Ativan IV as needed for GTC's lasting over 2 minutes or associated hypoxia
-Outpatient neurology and neuro-oncology follow-up
-DVT prophylaxis.
-Please recall neurology services any questions or concerns
I personally reviewed all radiology and labs along with past medical records pertinent to current medical problems. Total time spent in patient care is 37 minutes.
Thank you for allowing us to participate in the care of this patient. Please do not hesitate to contact us with any questions or concerns.
Objective Data
Vital Signs
Temp Pulse Resp BP Pulse Ox
36.4 C 94 16 129/82 99
09/12/24 07:27 09/12/24 12:33 09/12/24 10:00 09/12/24 12:33 09/12/24 08:00
Lab Results
09/12/24 04:15
09/12/24 05:34
PT 13.0 Sec (11.4-14.6) 09/11/24 17:09
INR 0.95 09/11/24 17:09
APTT 21.2 Sec (23.4-35.0) L 09/11/24 17:09
Sodium 128 mmol/L (135-145) L 09/12/24 05:34
Potassium 4.7 mmol/L (3.5-5.1) 09/12/24 05:34
BUN 19 mg/dl (9-20) 09/12/24 05:34
Glucose 110 mg/dl (70-99) H 09/12/24 05:34
Calcium 8.5 mg/dl (8.4-10.2) 09/12/24 05:34
Ur Buprenorphine Cancelled 09/11/24 15:45
Ur Buprenorphine Negative (Negative) 09/11/24 15:45
Patient Allergies
bacitracin [From Polysporin] Allergy (Verified 09/11/24 10:15)
Hives
polymyxin B sulfate [From Polysporin] Allergy (Verified 09/11/24 10:15)
Hives
shellfish derived Allergy (Verified 09/11/24 15:29)
Anaphylaxis
levetiracetam Adverse Reaction (Verified 09/11/24 18:04)
Agitation per spouse
Vital Signs and Labs
-
Vital Signs and Labs:
Vital Signs
Temp Pulse Resp BP Pulse Ox
36.9 C 94 16 129/82 99
09/12/24 15:14 09/12/24 12:33 09/12/24 10:00 09/12/24 12:33 09/12/24 08:00
Lab Results
09/12/24 04:15
09/12/24 05:34
PT 13.0 Sec (11.4-14.6) 09/11/24 17:09
INR 0.95 09/11/24 17:09
APTT 21.2 Sec (23.4-35.0) L 09/11/24 17:09
Sodium 128 mmol/L (135-145) L 09/12/24 05:34
Potassium 4.7 mmol/L (3.5-5.1) 09/12/24 05:34
BUN 19 mg/dl (9-20) 09/12/24 05:34
Glucose 110 mg/dl (70-99) H 09/12/24 05:34
Calcium 8.5 mg/dl (8.4-10.2) 09/12/24 05:34
Ur Buprenorphine Cancelled 09/11/24 15:45
Ur Buprenorphine Negative (Negative) 09/11/24 15:45
Medications
-
Medications:
Generic Name Dose Route Start Last Admin
Trade Name Freq PRN Reason Stop Dose Admin
Acetaminophen 650 mg 09/12/24 08:27 09/12/24 08:36
Acetaminophen 325 Mg Tablet PO 10/10/24 08:26 650 mg
Q6HPRN PRN Administration
mild pain/ fever>100.5F/CARSON
Aspirin 81 mg 09/12/24 18:00
Aspirin 81 Mg (Enteric Coated) Tablet PO 10/10/24 17:59
QPM GRACE
Atorvastatin Calcium 80 mg 09/13/24 08:00
Atorvastatin (Lipitor) 80 Mg Tablet PO 10/11/24 07:59
DAILY GRACE
Bisacodyl 10 mg 09/11/24 14:59
Bisacodyl 10 Mg Rectal Suppository RECTAL 10/09/24 14:58
[id number] PRN
constipation
Dexamethasone Sodium Phosphate 4 mg 09/11/24 16:00 09/12/24 07:57
Dexamethasone 4 Mg/Ml 1 Ml Vial IV 10/09/24 15:59 4 mg
Q8 GRACE Administration
Sodium Chloride 1,000 mls @ 80 mls/hr 09/11/24 14:59 09/12/24 04:04
Nss IV 1,000 mls
[id number] GRACE Administration
Lacosamide 200 mg 09/11/24 20:00 09/12/24 07:57
Lacosamide (10 Mg/Ml) 200 Mg/20 Ml Vial IV 09/25/24 19:59 200 mg
Q12 GRACE Administration
Levothyroxine Sodium 25 mcg 09/13/24 06:00
Levothyroxine 25 Mcg Tablet PO 10/11/24 05:59
DAILY @ 0600 GRACE
Lisinopril 20 mg 09/12/24 11:00 09/12/24 12:33
Lisinopril 20 Mg Tablet PO 10/10/24 10:59 20 mg
DAILY GRACE Administration
Lorazepam 2 mg 09/11/24 14:59
Lorazepam 2 Mg/Ml Vial IV 10/09/24 14:58
Q3HPRN PRN
Seizure clusters
Metoprolol Succinate 25 mg 09/12/24 22:00
Metoprolol 25 Mg Extended Release Tablet PO 10/10/24 21:59
HS GRACE
Non-Formulary Medication 20 mg 09/12/24 22:00
Temozolomide PO 10/10/24 21:59
HS GRACE
Non-Formulary Medication 140 mg 09/12/24 22:00
Temozolomide PO 10/10/24 21:59
HS GRACE
Ondansetron HCl 8 mg 09/12/24 22:00
Ondansetron 4 Mg Tablet PO 10/10/24 21:59
HSPRN PRN
N/V while on chemo
Pantoprazole Sodium 40 mg 09/11/24 21:00 09/12/24 07:57
Pantoprazole Sodium 40 Mg/10 Ml Vial IV 10/09/24 20:59 40 mg
BID GRACE Administration
Polyethylene Glycol 17 grams 09/11/24 14:59
Polyethylene Glycol Powder 17 Grams Packet PO 10/09/24 14:58
DAILYPRN PRN
constipation
Prochlorperazine Edisylate 5 mg 09/12/24 08:50
Prochlorperazine 10 Mg/2 Ml Vial IV 10/10/24 08:49
Q6HPRN PRN
nausea/vomiting
Senna/Docusate Sodium 1 tablet 09/11/24 14:59
Docusate W/Senna (Deyanira-Colace) Tablet PO 10/09/24 14:58
BIDPRN PRN
constipation
Sodium Chloride 0 flush 09/11/24 16:00
Sodium Chloride 0.9% (Flush) Syringe IV 10/09/24 15:59
PER PROTOCOL GRACE
Sodium Chloride 0 ml 09/11/24 18:00
Sodium Chloride 0.9% (Preservative Free) 10 Ml Vial IV 10/09/24 17:59
PRN PRN
IV Lorazepam dilution
Protocol
Sodium Chloride 10 ml 09/11/24 21:00 09/12/24 07:57
Sodium Chloride 0.9% (Preservative Free) 10 Ml Vial IV 10/09/24 20:59 10 ml
BID GRACE Administration
Thiamine HCl 100 mg 09/11/24 15:00 09/12/24 07:56
Thiamine (100 Mg/Ml) 2 Ml Vial IV 09/13/24 08:01 100 mg
DAILY GRACE Administration
Home Medications
-
Home Medications
aspirin 81 mg tablet,delayed release 81 mg PO QPM Blood Clot Prevention/Tx 05/28/24
atorvastatin 80 mg tablet 80 mg PO DAILY High Cholesterol 05/28/24
lisinopril 20 mg tablet 20 mg PO DAILY Blood Pressure 05/28/24
metoprolol succinate 25 mg tablet,extended release 24 hr 25 mg PO HS Blood Pressure 05/28/24
omeprazole 20 mg capsule,delayed release 20 mg PO BID Gastrointestinal Issue 05/28/24
ondansetron HCl 8 mg tablet 8 mg PO HS Gastrointestinal Issue 08/19/24
temozolomide 140 mg capsule 140 mg PO HS Cancer 08/19/24
temozolomide 20 mg capsule 20 mg PO HS Cancer 08/19/24
dexamethasone 4 mg tablet 4 mg PO TID@0800,1200,1800 Cancer 09/11/24
lacosamide 100 mg tablet (Vimpat) 100 mg PO BID Seizures 09/11/24
--- NOTE | 2024-09-12 15:40 | PTCARENOTE ---
to MRI via wc, tolerated, now med/surg level of care, family bedside, no new changes.
--- NOTE | 2024-09-12 16:27 | PTOTSP ---
Dysphagia Evaluation
Patient with chronic dysphagia risk factors (i.e., glioblastoma s/p chemo/XRT/tumor resection in June, eosinophilic esophagitis). Oral and pharyngeal stages of swallowing suspected to be grossly WFL. Patient with history of chronic esophageal
dysphagia.
Recommend:
1. Regular, Thin Liquids
2. Medications - as best tolerated
3. Strategies: upright to 90 degrees, small single sips/bites, slow rate, cut foods into small pieces, moisten foods well
4. Outpatient GI follow up
--- NOTE | 2024-09-12 17:19 | W.DCSUMMARY ---
Discharge Summary
Discharge Data
Date of Admission: 09/11/24
Date of Discharge: 09/12/24
-
Pending Results: No
Discharge Plan
-
Patient Disposition: Home (Routine Discharge)
Discharge Diagnosis/Procedures: Seizure
Hypothyroidism
Mild Hyponatremia
Condition: Fair
Diet: Regular
Activity: As tolerated
Driving Restrictions: No driving
Bathing Restrictions: None
Blood Work: Repeat BMP with primary care provider in 1 week of discharge.
Repeat Thyroid Function Test with primary care provider in 1 month of discharge.
Activity Restrictions/Additional Instructions:
Follow up with primary care provider in 1 week of discharge.
Follow up with oncologist, neurosurgeon, and GI in 2-4 weeks of discharge.
Vimpat has been increased to 200 mg twice a day for better treatment seizure disorder
Synthroid has been started for Hypothyroidism.
Follow up with your oncology team for further steroid taper recommendations (a phone call may be sufficient).
Please take medications as prescribed/recommended and follow up with primary care provider and/or other healthcare provider involved in your care for refills and/or further adjustment to your medication regimen as necessary.
Referrals:
UNKNOWN - PT NOT,INTERVIEWE [Family Provider] -
Prescriptions:
New
levothyroxine 25 mcg Tablet
25 mcg PO DAILY @ 0600 Qty: 30 0RF
lacosamide [Vimpat] 200 mg tablet
200 mg PO BID Qty: 60 0RF
Continued
atorvastatin 80 mg tablet
80 mg PO DAILY
lisinopril 20 mg tablet
20 mg PO DAILY
aspirin 81 mg tablet,delayed release (DR/EC)
81 mg PO QPM
omeprazole 20 mg capsule,delayed release(DR/EC)
20 mg PO BID
metoprolol succinate 25 mg tablet extended release 24 hr
25 mg PO HS
ondansetron HCl 8 mg tablet
8 mg PO HS
temozolomide 20 mg Capsule
20 mg PO HS
Rx Instructions:
started 08/17/24 for 42 days, taken with 140mg
temozolomide 140 mg capsule
140 mg PO HS
Rx Instructions:
started 08/17/24 for 42 days, taken with 20mg
dexamethasone 4 mg Tablet
4 mg PO TID@0800,1200,1800
Discontinued
lacosamide [Vimpat] 100 mg Tablet
100 mg PO BID
Discharge Orders:
Discharge Patient (As Directed); Ordered 09/12/24
Ordered By: Heidi Morrison
Discharge Date and Time
Print Language: BELGIAN
--- NOTE | 2024-09-12 17:56 | PTCARENOTE ---
discharge instructions reviewed, Dr. Morrison in room several times speaking with pt, family updated, questions answered, awaiting ride. no c/o. IVs out.
[2024-09-12] MEDS: DECADRON IV (18:04)
[2024-09-12] MEDS: NSS IV (18:04)
== END 2024-09-12 18:14 | disposition home or self-care (01) | DRG 100 ==
LOC: ICU 14:16
PROVIDERS: ADMITTING PHYSICIAN Internal Medicine; ATTENDING PHYSICIAN Internal Medicine; CONSULT PHYSICIAN Psychiatry & Neurology Neurology; EMERGENCY PHYSICIAN Emergency Medicine; OTHER PHYSICIAN Internal Medicine
DX: G40.101 Localization-related (focal) (partial) symptomatic epilepsy and epileptic syndromes with simple partial seizures, not intractable, with status epilepticus (principal); G93.41 Metabolic encephalopathy; E87.1 Hypo-osmolality and hyponatremia; Q21.12 Patent foramen ovale; G81.94 Hemiplegia, unspecified affecting left nondominant side; E78.00 Pure hypercholesterolemia, unspecified; I25.10 Atherosclerotic heart disease of native coronary artery without angina pectoris; I10 Essential (primary) hypertension; D72.829 Elevated white blood cell count, unspecified; D75.839 Thrombocytosis, unspecified; K20.0 Eosinophilic esophagitis; K21.9 Gastro-esophageal reflux disease without esophagitis; R09.02 Hypoxemia; E03.9 Hypothyroidism, unspecified; Z96.652 Presence of left artificial knee joint; I25.2 Old myocardial infarction; Z95.5 Presence of coronary angioplasty implant and graft; Z85.841 Personal history of malignant neoplasm of brain; Z92.21 Personal history of antineoplastic chemotherapy; Z79.82 Long term (current) use of aspirin; Z79.52 Long term (current) use of systemic steroids; Z92.3 Personal history of irradiation; Z88.8 Allergy status to other drugs, medicaments and biological substances; Z88.1 Allergy status to other antibiotic agents; Z91.013 Allergy to seafood; Z85.828 Personal history of other malignant neoplasm of skin
CPT/HCPCS: 70450; 70496; 70498; 70551; 71045; 80053; 80164; 80306; 80307; 82550; 82962; 84439; 84443; 85025; 85027; 85610; 85730; 92610; 93005; 95812; 96365; 96375; 97163; 97166; 99291; C9254; Q9967

== ENCOUNTER → 2024-12-13 10:40 | Outpatient (REF) | payer BC, SELFPAY | LOC: HWRAD 10:40 | PROVIDERS: ATTENDING PHYSICIAN Family Medicine | DX: R91.8 Other nonspecific abnormal finding of lung field (principal) | CPT/HCPCS: 71250 ==

== ENCOUNTER → 2025-01-10 13:05 | Outpatient (REF) | payer BC, SELFPAY | LOC: HWRCS 13:05 | PROVIDERS: ATTENDING PHYSICIAN Internal Medicine Cardiovascular Disease; FAMILY PHYSICIAN Family Medicine | DX: R06.09 Other forms of dyspnea (principal) | CPT/HCPCS: 93306 ==

== ENCOUNTER → 2025-01-14 11:02 | Outpatient (REF) | payer BC, SELFPAY | LOC: RCS 11:02 | PROVIDERS: ATTENDING PHYSICIAN Internal Medicine Cardiovascular Disease; FAMILY PHYSICIAN Family Medicine | DX: R06.09 Other forms of dyspnea (principal) | CPT/HCPCS: 78452; 93017; A9500 ==

== ENCOUNTER → 2025-01-21 12:01 | Outpatient (REF) | payer BC, SELFPAY | LOC: RAD 12:01 | PROVIDERS: ATTENDING PHYSICIAN Internal Medicine Cardiovascular Disease; FAMILY PHYSICIAN Family Medicine | DX: R06.09 Other forms of dyspnea (principal); R79.89 Other specified abnormal findings of blood chemistry | CPT/HCPCS: 71275; Q9967 ==

== ENCOUNTER 2025-05-26 16:33 | Emergency (ER) | payer BC, SELFPAY ==
[2025-05-26 16:37] VITALS: BP 174/107
--- NOTE | 2025-05-26 16:39 | ED.CVA ---
History of Present Illness
<CRISSY Mckeon - Last Filed: 05/26/25 22:19>
General
Chief Complaint: CVA/TIA Symptoms
Source: patient
Exam Limitations: none
Time Seen by Provider: 05/26/25 16:39
Nursing documentation reviewed up to this point in time: agreed with
Onset of Stroke Symptoms
Onset of symptoms known: No
Time pt last seen normal is known: No
History of Present Illness
History of Present Illness:
[id number] male with past medical history history of glioblastoma status post chemo and radiation(followed by Dr. Perrin at [place]), seizure disorder, STEMI presents here to the ER for evaluation. patient presents to the ER awake alert
he tells me he he was in bed and he tells me that his arm was over his head holding his phone. he felt the sensation that his hand was losing circulation. His son then noticed his left arm was shaking and he thought he had a seizure. Son gave 3
sprays of Nayzilam. is concerned because patient does not seem to be bouncing back. Patient is followed by [facility]. He is getting Avastin treatments every 2 weeks.
He is on Vimpat for seizures and is on Eliquis. Patient presents awake alert he is able to give history. He denies any headache.
Past History
<CRISSY Mckeon - Last Filed: 05/26/25 22:19>
Past History
ED Past Medical History: CAD, GERD (eosinphelia), HTN, Hypercholesterolemia, IA and Other (Brain tumor)
ED Past Surgical History: Cardiac (cath w/ stent), Orthopedic and Other (Eye... Scleral buckling)
Social History
Tobacco: Non-smoker
Alcohol: Occasional
Drug: None
Personal:
Living: with family
Phy Exam
<CRISSY Mckeon - Last Filed: 05/26/25 22:19>
General Physical Exam
General Presentation: no apparent distress
General age: appears stated age
General Skin: warm and dry
General Habitus: normal
General Mental: alert
General Hydration: appears well hydrated
Cardiovascular Exam
Cardiovascular Exam: regular rate/rhythm, no murmur and normal peripheral pulses
Pulmonary Exam
Pulmonary Exam: lungs clear and no respiratory distress
Neurological Exam
Neurological Exam: alert and oriented x3
NIH Stroke Score
Level of Consciousness: 0 - Alert
LOC questions: 0-Answers both correctly
LOC Commands: 0-Performs both correctly
Best Gaze: 0-Normal
Visual Aragon: 0=Normal, no visual loss
Facial palsy: 0=Normal, symmetrical
Motor - Right Arm: 1=Drift < 10 seconds
Motor - Left Arm: 0=No drift 10 seconds
Motor - Right Le-No drift 5 seconds
Motor - Left Le-No drift 5 seconds
Limb Ataxia: 0-Absent
Sensation: 0-Normal
Best Language: 0-No aphasia
Dysarthria: 0-Normal
Extinction and Inattention: 0-No abnormality
Total Score:: 1
[place] Coma Scale
Eye Opening: Spontaneous
Verbal Response: Oriented
Motor Response: Obeys Commands
GCS Total Score: 15
Musculoskeletal Exam
Musculoskeletal Exam: full ROM
Skin Exam
Skin Exam: normal color and warm/dry
Psychiatric Exam
Psychiatric Exam: normal mood/affect
Course
<CRISSY Mckeon - Last Filed: 05/26/25 22:19>
Orders/Labs/Results
Orders:
Orders
05/26/25 16:52
CT Head W/o Iv Contrast Urgent
Comment:
Reason For Exam: left arm weakness/poss seizure
Cardiac Monitoring- Treatment ONCE
IV Insert/Care/Rem.- Treatment PRN
05/26/25 16:53
Electrocardiogram (*1) Stat
Reason for Study: Other
Other Reason for Exam: neuro symptoms
EKG- Treatment ONCE
05/26/25 17:12
Complete Blood Count/With Diff Urgent
Comprehensive Metabolic Panel Urgent
05/26/25 18:37
Dexamethasone Sod Phosphate [Decadron] 10 mg IV NOW STA
Abnormal Lab Results
05/26/25 05/26/25
16:42 17:12
WBC 3.7 L 10^3/uL
(4.8-10.8)
MCHC 31.7 L g/dL
(33.0-37.0)
RDW 17.5 H %
(11.5-14.5)
Absolute Lymphs (auto) 1.0 L 10^3/uL
(1.2-3.4)
Sodium 134 L mmol/L
(135-145)
Total Bilirubin 1.6 H mg/dl
(0.2-1.3)
POC Glucose 67 L mg/dl
(70-99)
05/26/25 17:12
05/26/25 17:12
Vital Signs
Initial and Last Documented VS:
Initial Vital Signs
Temp Pulse Resp BP Pulse Ox
98.9 F 89 18 174/107 98
05/26/25 16:37 05/26/25 16:37 05/26/25 16:37 05/26/25 16:37 05/26/25 16:37
Last Documented Vital Signs
Temp Pulse Resp BP Pulse Ox
98.9 F 76 16 134/90 94
05/26/25 16:37 05/26/25 20:00 05/26/25 20:00 05/26/25 20:00 05/26/25 20:00
Grain Thresher consulted with Physician
Grain Thresher consulted with physician?: Yes
Name of Physician Consulted: Juan Manuel
<Neto Zambrano, DO - Last Filed: 05/26/25 16:56>
Orders/Labs/Results
Orders:
Orders
05/26/25 16:52
CT Head W/o Iv Contrast Urgent
Comment:
Reason For Exam: left arm weakness/poss seizure
Cardiac Monitoring- Treatment ONCE
IV Insert/Care/Rem.- Treatment PRN
05/26/25 16:53
Electrocardiogram (*1) Stat
Reason for Study: Other
Other Reason for Exam: neuro symptoms
EKG- Treatment ONCE
05/26/25 17:12
Complete Blood Count/With Diff Urgent
Comprehensive Metabolic Panel Urgent
05/26/25 18:37
Dexamethasone Sod Phosphate [Decadron] 10 mg IV NOW STA
Abnormal Lab Results
05/26/25 05/26/25
16:42 17:12
WBC 3.7 L 10^3/uL
(4.8-10.8)
MCHC 31.7 L g/dL
(33.0-37.0)
RDW 17.5 H %
(11.5-14.5)
Absolute Lymphs (auto) 1.0 L 10^3/uL
(1.2-3.4)
Sodium 134 L mmol/L
(135-145)
Total Bilirubin 1.6 H mg/dl
(0.2-1.3)
POC Glucose 67 L mg/dl
(70-99)
05/26/25 17:12
05/26/25 17:12
Vital Signs
Initial and Last Documented VS:
Initial Vital Signs
Temp Pulse Resp BP Pulse Ox
98.9 F 89 18 174/107 98
05/26/25 16:37 05/26/25 16:37 05/26/25 16:37 05/26/25 16:37 05/26/25 16:37
Last Documented Vital Signs
Temp Pulse Resp BP Pulse Ox
98.9 F 76 16 134/90 94
05/26/25 16:37 05/26/25 20:00 05/26/25 20:00 05/26/25 20:00 05/26/25 20:00
<CRISSY Mckeon - Last Filed: 05/26/25 22:19>
MDM/Problems Addressed
Differential Diagnosis Includes:
not limited to:
Glioblastoma
MDM/Problems Addressed:
As documented patient is a 58-year-old male with glioblastoma presents for evaluation of possible seizure versus stroke. Son reported the patient's left arm was shaking consistent with a seizure and he did get 3 doses of his rescue seizure
medication intranasally instead of 2. reports he was not bouncing back normally. His right arm seemed mildly weak on exam however he is awake alert and able to clear speech. He denies headache. He is on 2 or not a candidate for TNK. ED
physician was called to bedside stroke alert was not called however patient was sent to CAT scan. CAT scan does show redemonstration of 2 lesions within the right frontal lobe with extensive white matter hypoattenuation extending into the right
frontal lobe as well as the anterior right temporal lobe which likely represents worsening edema and possibly infiltrative tumor.
Weakness to his hand resolved likely a seizure however with findings on CAT scan case was reviewed with his oncologist Dr. Perrin who does recommend steroids. Patient was given a dose of Decadron here and discharged on 7-day course of steroids.
reviewed close outpt f/u by his oncologist. labs reviewed. sugar was mildly low not concerning. pt did a soda here .
Chronic conditions affecting care:
Glioblastoma seizures
<CRISSY Mckeon - Last Filed: 05/26/25 22:19>
*Radiology
Radiology exam reviewed: radiology read reviewed
*Pulse Oximetry
SaO2: 98
Oxygen Mode of Delivery: Room air
Patient hypoxic: no
*Critical Care Note
Total Time (30-74mins, 75-104mins- exclusive of procedures): Not Applicable
ED Attending Note
<CRISSY Mckeon - Last Filed: 05/26/25 22:19>
-
Portions of this chart may have been created with voice recognition software.� Occasional wrong word or��sound alike� substitutions may have occurred due to the inherent limitations of voice recognition software.
<Neto Zambrano DO - Last Filed: 05/26/25 16:56>
ED Attending Note
Patient seen and examined by attending physician: Yes
I performed the substantive portion of visit, reviewed & personally made and approve the management plan that is documented in note by myself or CARLOS.: Yes
ED Attending Note:
I have seen and evaluated the patient with a [id number] encounter. I have spoken to the advance practicer provider and involved in the medical history, the physical exam, medical decision making.
Evaluation and management service: agree unless noted differently below.
Results interpretation: agree unless noted differently below.
Focused HPI: 59-year-old male presenting with witnessed seizure by family. Patient is currently being treated for a glioblastoma.
Physical exam: Sitting bed comfortably. Mildly postictal. Mild weakness noted to his left arm
Medical Decision Making: Although there is concern for TIA versus stroke, a stroke alert was not called because patient is not a TNK candidate or an IAT candidate. Patient is on Eliquis and his last dose was today. His NIH is less than 5
indicating that he is not a great candidate for IAT regardless. Given his history, patient sent for stat CT head to rule out any evidence of vasogenic edema versus bleed.
Discharge Plan
Departure
Patient Disposition: Home (Routine Discharge)
Date of Disposition: 05/26/25
Time of Disposition: 19:56
Patient with high blood pressure during this ER visit?: Yes
Condition: Fair
Covid-19: Not Applicable
Discharge Problem:
Seizure
Instructions: Seizures in adults - ED (DC), BLOOD PRESSURE
Prescriptions:
New
dexamethasone 4 mg tablet
4 mg PO DAILY Qty: 7 0RF
No Action
lisinopril 20 mg tablet
20 mg PO DAILY
omeprazole 20 mg capsule,delayed release(DR/EC)
20 mg PO BID
metoprolol succinate 25 mg tablet extended release 24 hr
25 mg PO HS
ondansetron HCl 8 mg tablet
8 mg PO Q8HPRN PRN (Reason: nausea)
levothyroxine 25 mcg Tablet
25 mcg PO DAILY @ 0600 Qty: 30 0RF
lacosamide [Vimpat] 200 mg tablet
200 mg PO BID Qty: 60 0RF
tramadol 50 mg tablet
50 mg PO DAILYPRN PRN (Reason: moderate pain)
acetaminophen 500 mg Tablet
1,000 mg PO Q6H PRN (Reason: mild pain)
gabapentin 300 mg capsule
300 mg PO DAILY
gabapentin 300 mg capsule
600 mg PO QPM
docusate sodium 100 mg Tablet
100 mg PO DAILY PRN (Reason: constipation)
escitalopram oxalate 10 mg tablet
10 mg PO DAILY
Eliquis 5 mg tablet
5 mg PO DAILY
Patient Comments:
spouse says that he takes 5mg once daily
naloxone [Narcan] 4 mg/actuation spray,non-aerosol
1 spray INTRANASAL DAILYPRN PRN (Reason: overdose)
Nayzilam 5 mg/spray (0.1 mL) spray,non-aerosol
1 spray INTRANASAL DAILYPRN PRN (Reason: seizure)
Referrals:
Brendon Chung DO [Family Provider, Family Practice]
Activity Restrictions/Additional Instructions:
As discussed a prescription was sent for Decadron 4 mg tablets to start tomorrow daily until evaluated and discussed with your oncologist. Please call your oncologist tomorrow to review further instructions return if any worsening of symptoms
Interventions
Interventions:
*Risk Screen - Suicide Last Done: 05/26/25 16:37
*General Assessment Last Done: 05/26/25 16:37
*Neglect/Abuse Screening Last Done: 05/26/25 20:14
*ED- Fall Risk Assessment Last Done: 05/26/25 16:37
*ED COVID-19 Vaccine History Last Done: 05/26/25 16:37
*ED Influenza Vaccine History Last Done: 05/26/25 16:37
*Nursing Disposition Last Done: 05/26/25 20:14
ED- Pulmonary Assessment Last Done: 05/26/25 17:30
ED- Neurological Assessment Last Done: 05/26/25 17:30
ED- Cardiac Assessment Last Done: 05/26/25 17:30
Discharge Date and Time
Discharge Date/Time: 05/26/25 20:15
Print Language: ARMENIAN
[2025-05-26 16:44] LABS: Glucose - Point of Care 67 mg/dl (70-99)
[2025-05-26 17:13] VITALS: BP 164/106
[2025-05-26 17:22] LABS: Hematocrit 51.1 % (39.0-52.0); Hemoglobin 16.2 g/dL (13.0-18.0); Mean Corp Hgb Conc. 31.7 g/dL (33.0-37.0); Mean Corpuscular Volume 90.6 fL (80.0-94.0); Nucleated Red Blood Cells % 0 % (-); Platelet Count 293 10^3/uL (130-400); Red Cell Dist. Width 17.5 % (11.5-14.5)
[2025-05-26 17:35] LABS: ALT (SGPT) 16 U/L (0-50); AST (SGOT) 21 U/L (17-59); Albumin 4.2 g/dl (3.5-5.0); Alkaline Phosphatase 46 U/L (38-126); Blood Urea Nitrogen 13 mg/dl (9-20); Calcium 8.9 mg/dl (8.4-10.2); Carbon Dioxide 27 mmol/L (22-30); Chloride 102 mmol/L (98-107); Glucose 78 mg/dl (70-99); Potassium 4.1 mmol/L (3.5-5.1); Sodium 134 mmol/L (135-145); Total Protein 6.7 g/dl (6.3-8.2); eGFR > 60.00
[2025-05-26 18:00] VITALS: BP 154/110
[2025-05-26] MEDS: DECADRON 10 MG IV (18:56)
[2025-05-26 19:00] VITALS: BP 138/89
[2025-05-26 20:00] VITALS: BP 134/90
== END 2025-05-26 20:15 | disposition home or self-care (01) ==
LOC: EMR 16:33
PROVIDERS: Nurse Practitioner; EMERGENCY PHYSICIAN Student in an Organized Health Care Education/Training Program; FAMILY PHYSICIAN Family Medicine
DX: G40.909 Epilepsy, unspecified, not intractable, without status epilepticus (principal); C71.9 Malignant neoplasm of brain, unspecified; I25.10 Atherosclerotic heart disease of native coronary artery without angina pectoris; I10 Essential (primary) hypertension; E78.00 Pure hypercholesterolemia, unspecified; I25.2 Old myocardial infarction; K21.9 Gastro-esophageal reflux disease without esophagitis; Z79.01 Long term (current) use of anticoagulants; Z95.5 Presence of coronary angioplasty implant and graft; Z92.3 Personal history of irradiation
CPT/HCPCS: 99284; 96374; 70450; 80053; 82962; 85025; 93005